=== PATIENT | female | born 1935 | race African-American/Black ===

== ENCOUNTER → 2016-10-14 | Day surgery (SDC) | payer OTHER ==
--- NOTE | 2016-10-17 15:56 | PATH ---
Cytology Non-Gynecological Report Patient Name: HUMBERTO HASSAN [facility]. Rec. #: [id number] /Age/Gender: 1935 (Age: 81) / F Account: [id number] Location: RADIOLOGY Taken: 10/14/2016 Received: 10/14/2016 Reported: 10/17/2016 Physicians: Santhosh Sharma M.D. Specimen(s) Received THYROID FNA Clinical History Right 2.31 x 1.69 x1.46 cm Final Diagnosis THYROID, RIGHT, FINE NEEDLE ASPIRATION: SATISFACTORY FOR EVALUATION BETHESDA CATEGORY II: BENIGN (NO MALIGNANT CELLS IDENTIFIED) CYTOLOGIC FINDINGS ARE CONSISTENT WITH A BENIGN FOLLICULAR NODULE (ADENOMATOID NODULE) BENIGN FOLLICULAR CELLS AND COLLOID PRESENT. Comment: Recommend correlation with clinical findings and follow up as clinically indicated. Electronically Signed Gigi Bentley M.D. Gross Description Received are eight direct smears, four of which are air-dried and Diff-Quik stained, and four of which are alcohol fixed and Pap stained. Also received is 20 ml of bloody formalin from which one cellblock is prepared.
== END | disposition home or self-care (01) ==
LOC: JRADIR 09:39
PROVIDERS: ATTEND Internal Medicine Endocrinology, Diabetes & Metabolism
PROC: 0G9H3ZX Drainage of Right Thyroid Gland Lobe, Percutaneous Approach, Diagnostic (ICD-10-PCS; principal; 2016-10-14)
PROC: BG44ZZZ Ultrasonography of Thyroid Gland (ICD-10-PCS; 2016-10-14)
DX: E04.1 Nontoxic single thyroid nodule (principal)
CPT/HCPCS: 76942; 88173; 88305-TC

== ENCOUNTER → 2016-10-21 | Day surgery (SDC) | payer OTHER ==
--- NOTE | 2016-10-25 14:17 | PATH ---
Cytology Non-Gynecological Report Patient Name: HUMBERTO HASSAN [facility]. Rec. #: [id number] /Age/Gender: 1935 (Age: 81) / F Account: [id number] Location: RADIOLOGY Taken: 10/21/2016 Received: 10/21/2016 Reported: 10/25/2016 Physicians: Santhosh Sharma M.D. Specimen(s) Received LEFT THYROID FNA Clinical History Left thyroid nodule, 2.6 x 2.06 x 2.25 cm Final Diagnosis THYROID GLAND, LEFT LOBE, US GUIDED FINE NEEDLE ASPIRATION BIOPSY: SATISFACTORY FOR EVALUATION. NO MALIGNANT CELLS IDENTIFIED. CONSISTENT WITH NODULAR GOITER WITH CYSTIC CHANGE (BENIGN FOLLICULAR NODULE, BETHESDA CATEGORY II, BENIGN), SEE COMMENT. Comment: The smear and the cell block focal abscess of lung appearing follicular epithelial cells arranged in mixed macro- and microfollicles. Many cells show Hurthle cell (oncocytic) change. Macrophages are present indicative of cystic change. Colloid is present. Electronically Signed Sen Sanabria M.D. Gross Description Received are four air dried smears, four smears in 95% alcohol, and 20 cc of bloody fluid in formalin. Four diff-quik stained slides, four Pap stained slides and one cell block are made.
== END | disposition home or self-care (01) ==
LOC: JRADIR 09:38
PROVIDERS: ATTEND Internal Medicine Endocrinology, Diabetes & Metabolism
PROC: 0G9G3ZX Drainage of Left Thyroid Gland Lobe, Percutaneous Approach, Diagnostic (ICD-10-PCS; principal; 2016-10-21)
PROC: BG44ZZZ Ultrasonography of Thyroid Gland (ICD-10-PCS; 2016-10-21)
DX: E04.1 Nontoxic single thyroid nodule (principal)
CPT/HCPCS: 76942; 88173; 88305-TC

== ENCOUNTER → 2018-12-25 | Day surgery (SDC) | payer OTHER ==
--- NOTE | 2018-12-28 18:14 | PATH ---
Cytology Non-Gynecological Report Patient Name: HUMBERTO HASSAN [facility]. Rec. #: [id number] /Age/Gender: 1935 (Age: 83) / F Account: [id number] Location: RADIOLOGY ULTRA Taken: 12/25/2018 Received: 12/25/2018 Reported: 12/28/2018 Physicians: Vania Salmon M.D. Specimen(s) Received RIGHT THYROID FNA Clinical History Right thyroid nodule, 2.56 x 1.68 x 1.38 cm Final Diagnosis THYROID, RIGHT, FINE NEEDLE ASPIRATION: SATISFACTORY FOR EVALUATION. BETHESDA CLASS II: BENIGN. CYTOLOGIC FINDINGS ARE CONSISTENT WITH A BENIGN FOLLICULAR NODULE. SMALL FOLLICULAR CELLS DISPERSED AGGREGATES, SHEETS, MACRO AND MICRO-FOLLICLES IN A BACKGROUND OF ABUNDANT COLLOID PRESENT. Electronically Signed Meme Ge M.D. Gross Description Received are 7 direct smears, four of which are air-dried and Diff-Quik stained, and 3 of which are alcohol fixed and Pap stained. One cytospin prepared and Pap stained. Also received is 20 ml of bloody formalin from which one cellblock is prepared.
== END | disposition home or self-care (01) ==
LOC: JRADIR 09:01
PROVIDERS: ATTEND Internal Medicine
PROC: 0G9K3ZX Drainage of Thyroid Gland, Percutaneous Approach, Diagnostic (ICD-10-PCS; principal; 2018-12-25)
DX: E04.1 Nontoxic single thyroid nodule (principal)
CPT/HCPCS: 10005; 76942; 88173; 88305-TC

== ENCOUNTER → 2018-12-31 | Day surgery (SDC) | payer OTHER ==
--- NOTE | 2019-01-02 10:22 | PATH ---
Cytology Non-Gynecological Report Patient Name: HUMBERTO PILLAI [facility]. Rec. #: [id number] /Age/Gender: 1935 (Age: 83) / F Account: [id number] Location: RADIOLOGY Taken: 12/31/2018 Received: 12/31/2018 Reported: 01/02/2019 Physicians: Santhosh Sharma M.D. Specimen(s) Received LEFT THYROID FNA Clinical History Left thyroid lobe, 2.42 x 2.04 x 1.94 cm Final Diagnosis THYROID, LEFT, FINE NEEDLE ASPIRATION: SATISFACTORY FOR EVALUATION. BETHESDA CLASS II: BENIGN. CYTOLOGIC FINDINGS ARE CONSISTENT WITH A BENIGN FOLLICULAR NODULE WITH POST-HEMORRHAGIC CHANGE. FOLLICULAR CELLS WITH IN A BACKGROUND OF SOME THIN COLLOID AND HEMOSIDERIN-LADEN MACROPHAGES. Electronically Signed Meme Ge M.D. Gross Description Received are eight direct smears, four of which are air-dried and Diff-Quik stained, and four of which are alcohol fixed and Pap stained. Also received is 20 ml of bloody formalin from which one cellblock is prepared.
== END | disposition home or self-care (01) ==
LOC: JRADIR 09:04
PROVIDERS: ATTEND Internal Medicine
PROC: 0G9G3ZX Drainage of Left Thyroid Gland Lobe, Percutaneous Approach, Diagnostic (ICD-10-PCS; principal; 2018-12-31)
DX: E04.1 Nontoxic single thyroid nodule (principal)
CPT/HCPCS: 76942; 88173; 88305-TC

== ENCOUNTER 2019-09-26 19:32 | Inpatient (IN) | payer OTHER ==
[2019-09-26] MEDS ORDERED: ACETAMINOPHEN 1000 MG/100 ML VIAL (NON FORMULARY) IVPB ONE (20:24)
--- NOTE | 2019-09-26 20:25 | PDOC ---
History of Present Illness - General Chief Complaint: Edema Stated Complaint: EXTREMITY SWELLING Time Seen by Provider: 09/26/19 19:48 - History of Present Illness Initial Comments: History limited 2/2 patient clinical condition, provided by patient and granddaughter. 84 y/o female with HTN, CAD, CHF, CKD stage 3, afib/flutter, arterial insufficiency presenting today with right upper extremity swelling and pain. Per granddaughter, this started on Monday. Pt reports pain worse with movement. States that the pain is worse in the right axilla. No recent falls or trauma. No chest pain/shortness of breath. No abd pain. No back pain. No dysuria/diarrhea. No leg swelling. Per granddaughter pt does not appear to be altered from her baseline. A&Ox1. Denies fever/chills. Pt has a hx of stent in the RLE and DVT in LLE. Meds: plavix, eliquis Past History - Medical History Allergies/Adverse Reactions: Allergies Allergy/AdvReac Type Severity Reaction Status Date / Time No Known Allergies Allergy Verified 09/26/19 22:50 Home Medications: Ambulatory Orders Diltiazem Cd [Cardizem Cd -] 240 mg PO DAILY 08/22/19 Hydrochlorothiazide [Hctz -] 25 mg PO DAILY 08/22/19 Losartan Potassium [Cozaar] 100 mg PO DAILY 08/22/19 Metoprolol Succinate [Toprol XL -] 75 mg PO DAILY 08/22/19 Apixaban [Eliquis -] 5 mg PO BID #60 tablet 08/28/19 Atorvastatin Ca [Lipitor] 80 mg PO HS #30 tablet 08/28/19 Clopidogrel Bisulfate [Plavix -] 75 mg PO DAILY #30 tablet 08/28/19 Anemia: Yes Cardiac Disorders: Yes (a.flutter) COPD: No CHF: Yes HTN: Yes Thyroid Disease: Yes (nodule) - Psycho-Social/Smoking History Smoking History: Never smoked Have you smoked in the past 12 months: No - Substance Abuse Hx (Audit-C & DAST Scrn) How often the patient has a drink containing alcohol: Never Score: In Men: 4 or > Positive; In Women: 3 or > Positive: 0 Screen Result (Pos requires Nsg. Audit-10AR): Negative In the last yr the pt used illegal drug/Rx for NonMed reason: No Score: Yes response is considered Positive: 0 Screen Result (Positive result requires Nsg. DAST-10): Negative Review of Systems - Review of Systems Comments:: GENERAL/CONSTITUTIONAL: No fever or chills. No weakness._ HEAD, EYES, EARS, NOSE AND THROAT: No change in vision. No change in hearing. No sore throat._ CARDIOVASCULAR: No chest pain or shortness of breath_ RESPIRATORY: Denies cough, hemoptysis_ GASTROINTESTINAL: No nausea, vomiting, diarrhea or constipation._ GENITOURINARY: No dysuria, frequency, or change in urination._ MUSCULOSKELETAL: Reports right upper extremity pain. No neck or back pain._ SKIN: No rash_ NEUROLOGIC: No headache, vertigo, loss of consciousness, or change in strength/sensation._ ENDOCRINE: No increased thirst. No abnormal weight change_ HEMATOLOGIC/LYMPHATIC: Hx of DVT LLE. ALLERGIC/IMMUNOLOGIC: No hives or skin allergy._ *Physical Exam - Vital Signs Last Vital Signs Temp Pulse Resp BP Pulse Ox 98.6 F 96 H 18 151/60 99 09/26/19 20:13 09/26/19 20:13 09/26/19 20:13 09/26/19 20:13 09/26/19 20:13 - Physical Exam GENERAL: Awake, alert, and oriented to person, in no acute distress_ HEAD: No signs of trauma, normocephalic, atraumatic _ EYES: PERRLA, EOMI, sclera anicteric, conjunctiva clear_ ENT: Hearing grossly normal, nares patent, oropharynx clear without exudates. No uvular deviation. Moist mucosa_ NECK: Normal ROM, supple, no lymphadenopathy, JVD, or masses. No c-spine TTP. LUNGS: No distress, speaks in full sentences, clear to auscultation bilaterally _ HEART: Normal rate, irregular rhythm, normal S1 and S2, no murmurs appreciated, peripheral pulses normal and equal bilaterally._ ABDOMEN: Soft, nontender, normoactive bowel sounds. No guarding, no rebound. No masses_ EXTREMITIES: Right upper extremity swelling from hand to shoulder. Pain exacerbated by movement. No focal TTP. Full ROM. Pulses 2+ bilaterally. Coat Operator Insulator strength equal and bilateral. No clubbing or cyanosis_ NEUROLOGICAL: Cranial nerves II through XII grossly intact. Normal speech, ambulates with cane, no focal sensorimotor deficits. No facial asymmetry. No gross loss of sensation. SKIN: Very warm to touch, Dry, normal turgor, no rashes or lesions noted_ ED Treatment Course - LABORATORY CBC & Chemistry Diagram: 09/27/19 06:23 09/27/19 06:23 - RADIOLOGY Radiology Studies Ordered: Category Date Time Status CHEST X-RAY PORTABLE* [RAD] Stat Radiology 09/26/19 20:22 Ordered DUPLEX VASCUL US-1 ARM [US] Stat Ultrasound 09/26/19 20:22 Ordered Medical Decision Making - Medical Decision Making 09/26/19 20:34 84F hx of RLE stent, LLE DVT presenting today with RUE pain and swelling that started on Monday. No shortness of breath. Pain worse with movement. DDX includes RUE deep vs superficial vein thrombosis vs cellulitis. -cbc, cmp -ekg, trop, cxr -US duplex RUE -XR right shoulder 09/26/19 21:50 EKG shows 58 bpm, atrial flutter, no ST elevation, QTc 426. 09/26/19 22:35 Rectal temp 101.4. 09/26/19 22:44 US duplex JON shows no deep or superficial vein thrombosis. 09/26/19 22:52 CXR shows possible beginnings of PNA. Started on vanc, rocephin, azithro. Shoulder XR shows no acute fracture or dislocation. Labs reviewed. Laboratory Last Values WBC 10.2 K/mm3 (4.0-10.0) H 09/26/19 20:50 RBC 3.22 M/mm3 (3.60-5.2) L 09/26/19 20:50 Hgb 9.6 GM/dL (10.7-15.3) L 09/26/19 20:50 Hct 29.0 % (32.4-45.2) L 09/26/19 20:50 MCV 90.3 fl (80-96) 09/26/19 20:50 MCH 29.7 pg (25.7-33.7) 09/26/19 20:50 MCHC 32.9 g/dl (32.0-36.0) 09/26/19 20:50 RDW 13.3 % (11.6-15.6) 09/26/19 20:50 Plt Count 267 K/MM3 (134-434) 09/26/19 20:50 MPV 7.7 fl (7.5-11.1) 09/26/19 20:50 Absolute Neuts (auto) 8.5 K/mm3 (1.5-8.0) H 09/26/19 20:50 Neutrophils % 83.2 % (42.8-82.8) H D 09/26/19 20:50 Lymphocytes % 8.6 % (8-40) D 09/26/19 20:50 Monocytes % 7.4 % (3.8-10.2) 09/26/19 20:50 Eosinophils % 0.2 % (0-4.5) D 09/26/19 20:50 Basophils % 0.6 % (0-2.0) 09/26/19 20:50 Nucleated RBC % 0 % (0-0) 09/26/19 20:50 PT with INR 29.80 SEC (9.7-13.0) H 09/26/19 20:50 INR 2.50 (0.83-1.09) H 09/26/19 20:50 PTT (Actin FS) 34.0 SECONDS (25.2-36.5) 09/26/19 20:50 Sodium 138 mmol/L (136-145) 09/26/19 20:50 Potassium 4.0 mmol/L (3.5-5.1) 09/26/19 20:50 Chloride 102 mmol/L (98-107) 09/26/19 20:50 Carbon Dioxide 30 mmol/L (21-32) 09/26/19 20:50 Anion Gap 6 MMOL/L (8-16) L 09/26/19 20:50 BUN 21.4 mg/dL (7-18) H 09/26/19 20:50 Creatinine 1.4 mg/dL (0.55-1.3) H 09/26/19 20:50 Est GFR (CKD-EPI)AfAm 39.33 09/26/19 20:50 Est GFR (CKD-EPI)NonAf 33.94 09/26/19 20:50 Random Glucose 126 mg/dL (74-106) H 09/26/19 20:50 Uric Acid 6.9 mg/dL (2.6-7.2) 07/02/20 22:00 Calcium 8.3 mg/dL (8.5-10.1) L 09/26/19 20:50 Total Bilirubin 0.7 mg/dL (0.2-1) 09/26/19 20:50 AST 13 U/L (15-37) L 09/26/19 20:50 ALT 11 U/L (13-61) L 09/26/19 20:50 Alkaline Phosphatase 71 U/L (45-117) 09/26/19 20:50 Creatine Kinase 35 U/L (26-192) 09/26/19 20:50 Troponin I < 0.02 ng/ml (0.00-0.05) 09/26/19 20:50 Total Protein 6.7 g/dl (6.4-8.2) 09/26/19 20:50 Albumin 2.6 g/dl (3.4-5.0) L 09/26/19 20:50 09/27/19 00:22 D/w Dr. Jarrett who accepts the patient for admission. Discharge - Discharge Information Problems reviewed: Yes Clinical Impression/Diagnosis: Pneumonia, Right arm pain, Cellulitis Condition: Fair - Admission Yes - Follow up/Referral - Patient Discharge Instructions - Post Discharge Activity
[2019-09-26] MEDS ORDERED: ACETAMINOPHEN INJECTION 100 ML IVPB ONE (21:15)
[2019-09-26 21:20] LABS: BASO % 0.6 % (0-2.0); EOS % 0.2 % (0-4.5); HEMOGLOBIN 9.6 GM/dL (10.7-15.3); LYMPH % 8.6 % (8-40); MCH 29.7 pg (25.7-33.7); MCHC 32.9 g/dl (32.0-36.0); MEAN CELL VOLUME 90.3 fl (80-96); MEAN PLT VOLUME 7.7 fl (7.5-11.1); MONO % 7.4 % (3.8-10.2); NEUT % 83.2 % (42.8-82.8); PLATELET COUNT 267 K/MM3 (134-434); RBC 3.22 M/mm3 (3.60-5.2); RDW 13.3 % (11.6-15.6); WHITE BLOOD COUNT 10.2 K/mm3 (4.0-10.0)
[2019-09-26 21:28] LABS: INR 2.5 (0.83-1.09); PROTHROMBIN TIME (PATIENT) 29.8 SEC (9.7-13.0)
[2019-09-26 21:53] LABS: ALBUMIN 2.6 g/dl (3.4-5.0); ALK PHOS 71 U/L (45-117); ANION GAP 6 MMOL/L (8-16); BILIRUBIN,TOTAL 0.7 mg/dL (0.2-1); BLOOD UREA NITROGEN 21.4 mg/dL (7-18); CALCIUM 8.3 mg/dL (8.5-10.1); CHLORIDE 102 mmol/L (98-107); CO2 30 mmol/L (21-32); CREATININE 1.4 mg/dL (0.55-1.3); GLUCOSE,RANDOM 126 mg/dL (74-106); SGOT/AST 13 U/L (15-37); SGPT/ALT 11 U/L (13-61); SODIUM 138 mmol/L (136-145); TOT PROT 6.7 g/dl (6.4-8.2)
[2019-09-26] MEDS ORDERED: LACTATED RINGERS SOLUTION 1000 ML INFUS.BAG IV ONE (22:05)
[2019-09-26] MEDS ORDERED: morphine CARPU-JECT 2 MG/1 ML DISP.SYRIN IVPUSH ONE (22:06)
[2019-09-26] MEDS ORDERED: KETOROLAC TROMETHAMINE 15 MG/ML VIAL IVPUSH ONE (22:11)
--- NOTE | 2019-09-26 22:11 | PDOC ---
Documentation entered by Zelda Darby SCRIBE, acting as scribe for Cherry Barrera DO. Cherry Barrera DO: This documentation has been prepared by the Wilner soria Sydney, SCRIBE, under my direction and personally reviewed by me in its entirety. I confirm that the documentation accurately reflects all work, treatment, procedures, and medical decision making performed by me. Attending Attestation - Resident Resident Name: Lalit Johnson - ED Attending Attestation I have performed the following: I have examined & evaluated the patient, The case was reviewed & discussed with the resident, I agree w/resident's findings & plan, Exceptions are as noted - HPI HPI: 09/26/19 21:47 The patient is an 84 year old female with past medical history significant for HTN, CAD, CHF, Afib/flutter, arterial insufficiency and thyroid nodule, on Eliquis, on Plavix who presents to the emergency department with progressively worsening right upper extremity swelling. As per patient, her swelling began this past Monday and reports an associated dull pain in her right arm. Patients daughter denies any recent falls or fevers. PCP: Dr. Power - Physicial Exam PE: 09/26/19 22:11 Constitutional: Awake, alert, oriented. No acute distress. Head: Normocephalic. Atraumatic Eyes: PERRL. EOMI. Conjunctivae are not pale. ENT: Mucous membranes are moist and intact. Posterior pharynx without exudates or erythema. Uvula midline. Neck: Supple. Full ROM. No lymphadenopathy. Cardiovascular: Regular rate. Regular rhythm. S1, S2 regular. Pulmonary/Chest: No evidence of respiratory distress. Clear to auscultation bilaterally No wheezing, rales or rhonchi. Abdominal: Soft and non-distended. There is no tenderness. No rebound, guarding or rigidity. Back: No CVA tenderness. Musculoskeletal: + limited abduction R arm secondary to pain. No C, T, or L spine tenderness. No paraspinal tenderness. No edema. No cyanosis. No clubbing. No calf tenderness. Skin: + L wrist and arm are hot, swollen, and tender; R hand, wrist, forearm, and arm are swollen, hot, and tender; hot to touch, tender at R wrist, arm, axilla. Neurological: Alert and oriented to person, place, and time. Cranial nerves II-XII are grossly intact. Normal speech. Strength is grossly symmetric. No sensory deficits. Psychiatric: Good eye contact. Normal interaction, affect and behavior. - Medical Decision Making 09/26/19 22:09 a/p: 84yo female with R arm pain x 1 day -had L wrist pain yesterday and still has the pain today, but now with R arm pain -denies trauma -R hand swelling and warmth and wrist ttp -able to range the arm -no c/t/l spine ttp -labs sent show an elevated wbc, trop neg, mild cr increase -uric acid added -rectal temp added -will medicate for pain, will monitor and reassess 09/26/19 23:04 dvt neg shoulder xray shows arthritis warmth and swelling to b/l wrists concern for cellulitis, pt with arm pain and swelling also febrile will start abx poss pna on cxr cultures ordered will start abx will admit for pna/cellulitis Heart Score/ECG Review - ECG Intrepretation Comment:: 09/26/19 22:08 a/p: aflutter with pvc at 58, nl axis, no acute st changes, t wave inversions with flattening in the lateral leads Discharge - Discharge Information Problems reviewed: Yes Clinical Impression/Diagnosis: Pneumonia, Right arm pain, Cellulitis Condition: Fair - Admission Yes - Follow up/Referral - Patient Discharge Instructions - Post Discharge Activity
[2019-09-26] MEDS ORDERED: MORPHINE SULFATE 2 MG/ML VIAL ONE (22:30)
[2019-09-26] MEDS ORDERED: KETOROLAC TROMETHAMINE 15 MG/ML VIAL ONE (22:30)
[2019-09-26] MEDS ORDERED: AZITHROMYCIN IVPB 500 MG in DEXTROSE 5%-WATER - 250 ML IVPB ONE (23:07)
[2019-09-26] MEDS ORDERED: VANCOMYCIN 1 GM in D5W (PRE-DOCKED) 1,000 MG/250 ML IVPB ONE (23:07)
[2019-09-26] MEDS ORDERED: CEFTRIAXONE 1 GM in DEXTROSE 5%-WATER - 100 ML IVPB ONE (23:07)
[2019-09-27] MEDS ORDERED: CEFTRIAXONE 1 GM/50 ML BAG ONE (00:03)
--- NOTE | 2019-09-27 00:22 | PN ---
Teaching Attending Note Name of Resident: Libertad Jarrett ATTENDING PHYSICIAN STATEMENT I saw and evaluated the patient. I reviewed the resident's note and discussed the case with the resident. I agree with the resident's findings and plan as documented. SUBJECTIVE: Patient is an 84 year old woman with a PMH of HTN, CAD, CHF, CKD, Afib/flutter (On Plavix and Eliquis), Arterial insufficiency, RLE stent, DVT in LLE and Thyroid nodule presenting with right upper extremity swelling and pain. Per granddaughter, this started on Monday. Patient reports pain worse with movement. States that the pain is worse in the right axilla. No recent falls, trauma, chest pain, fever, chills, shortness of breath, abdominal pain, back pain, dysuria, diarrhea or leg swelling. Per granddaughter patient does not appear to be altered from her baseline - alert and oriented to person. Was recently hospitalized for LLE pain, arterial occlusion and elevated troponin and discharged on 08/28/2019. Denies alcohol, tobacco or illicit drug use. No sick contacts or recent travels. Tested negative for COVID-19 on 08/23/19 and 08/25/19. Family history is unremarkable. OBJECTIVE: Alert Vital Signs Period Temp Pulse Resp BP Sys/Arnold Pulse Ox Last 24 Hr 98.6 F-101.4 F 63-96 18-21 140-151/45-60 99-99 HEENT: No Jaundice, eye redness or discharge, PERRLA, EOMI. Normocephalic, atraumatic. External ears are normal and hearing is grossly intact. No nasal discharge. Neck: Supple, nontender. No palpable adenopathy or thyromegaly. No JVD Chest: Good effort. Clear to auscultation and percussion. Heart: Regular. No S3, rub or murmur Abdomen: Not distended, soft, nontender and no HSM. No rebound or guarding. Normal bowel sounds. Ext: Peripheral pulses intact. Limited ROM of right shoulder. Right forearm erythema, edema and tenderness. No leg edema. Skin: Warm and dry. No petechiae, rash or ecchymosis. Neuro: Alert. Oriented to person. Poorly communicative. CN 2-12 grossly intact. Sensation grossly intact in all four extremities and DTR are symmetric. Psych: Appropriate mood and affect. Good insight. Home Medications Medication Instructions Recorded Diltiazem Cd [Cardizem Cd -] 240 mg PO DAILY 08/22/19 Hydrochlorothiazide [Hctz -] 25 mg PO DAILY 08/22/19 Losartan Potassium [Cozaar] 100 mg PO DAILY 08/22/19 Metoprolol Succinate [Toprol XL -] 75 mg PO DAILY 08/22/19 Apixaban [Eliquis -] 5 mg PO BID #60 tablet 08/28/19 Atorvastatin Ca [Lipitor] 80 mg PO HS #30 tablet 08/28/19 Clopidogrel Bisulfate [Plavix -] 75 mg PO DAILY #30 tablet 08/28/19 Abnormal Lab Results 09/26/19 09/26/19 09/26/19 20:50 20:50 20:50 WBC 10.2 H RBC 3.22 L Hgb 9.6 L Hct 29.0 L Absolute Neuts (auto) 8.5 H Neutrophils % 83.2 H D PT with INR 29.80 H INR 2.50 H Anion Gap 6 L BUN 21.4 H Creatinine 1.4 H Random Glucose 126 H Calcium 8.3 L AST 13 L ALT 11 L Albumin 2.6 L Current Medications Generic Name Dose Route Start Last Admin Trade Name Freq PRN Reason Stop Dose Admin Acetaminophen 650 mg 09/27/19 03:47 Tylenol - PO Q4H PRN PAIN LEVEL 6-10 Apixaban 5 mg 09/27/19 10:00 Eliquis - PO BID [facility] Atorvastatin Calcium 80 mg 09/27/19 22:00 Lipitor - PO HS [facility] Clopidogrel Bisulfate 75 mg 09/27/19 10:00 Plavix - PO DAILY [facility] Diltiazem HCl 240 mg 09/27/19 10:00 Cardizem Cd - PO DAILY [facility] Hydrochlorothiazide 25 mg 09/27/19 10:00 Hctz - PO DAILY [facility] Losartan Potassium 100 mg 09/27/19 10:00 Cozaar - PO DAILY [facility] Metoprolol Succinate 75 mg 09/27/19 10:00 Toprol Xl - PO DAILY [facility] Vancomycin HCl 1,000 mg 09/27/19 11:00 Vancomycin (Pre-Docked) IVPB BID [facility] Protocol ASSESSMENT AND PLAN: 1. RUE Cellulitis - No obvious risk factor, though she reports having multiple venepuncture on the right arm during her recent hospital stay. Duplex scan of RUE didnot show any vascular obstruction. Right shoulder xray showed degenerative changes but no fracture or dislocation. CXR shows cardiomegaly, RLL atelectasis and blunted left costophrenic angle - unchanged compared to prior CXR. Will get CT scan of right fore arm, uric acid level, use tylenol for pain control, treat with IV Vancomycin and consult ID. Viral testing for COVID-19 ordered and patient placed on airborne, droplet and contact isolation. EKG shows Atrial flutter at 58/minute and QTc 426 with nonspecific T wave changes. Initial troponin is negative. Refer to Endocrine for workup of thyroid nodule. Will continue comprehensive care for all of patients comorbid conditions including Eliquis for Afib. 2. Hypoalbuminemia - Possibly due to combined effects of proteinuria, malnutrition and inflammation associated with comorbid conditions. Will ensure adequate dietary protein intake and also consult embossing clerk. 3. CKD Cause unclear. Will monitor urine output and consult Nephrology. Avoid nephrotoxic agents such as NSAIDS, aminoglycosides, contrast dyes and certain Alternative medicine products. 4. Anemia - Likely partly due to CKD. Will do basic anemia work up including serial stool guaiacs, reticulocyte count and iron studies. Would benefit from Procrit therapy once iron replete. 5. Hypertension Will restart suitable outpatient antihypertensive drugs when clinically appropriate. Subsequently, will revise regimen to ensure ro [id number] excellent BP control. Patient counseled on the injurious effects of uncontrolled hypertension. Nonpharmacologic measures to control hypertension like weight loss, salt restriction and exercise stressed. Importance of adherence to treatment regimen and attainment of normotension emphasized. 6. DVT prophylaxis - On Eliquis for Afib/flutter. 7. Advance directives - Full code
[2019-09-27] MEDS ORDERED: AZITHROMYCIN IVPB 500 MG/250 ML BAG IVPB ONE (00:42)
[2019-09-27] MEDS ORDERED: VANCOMYCIN 1 GRAM (PRE-DOCKED) 1,000 MG/250 ML BAG IVPB ONE (01:42)
[2019-09-27 05:08] VITALS: BMI 24.5
[2019-09-27] MEDS ORDERED: PNEUMOC 13-VAL CONJ-DIP CRM/PF 0.5 ML DISP.SYRIN IM ONE (05:08)
[2019-09-27 07:53] LABS: BASO % 0.5 % (0-2.0); EOS % 0.1 % (0-4.5); HEMATOCRIT 27.6 % (32.4-45.2); HEMOGLOBIN 8.9 GM/dL (10.7-15.3); LYMPH % 18.1 % (8-40); MCH 28.9 pg (25.7-33.7); MCHC 32.3 g/dl (32.0-36.0); MEAN CELL VOLUME 89.5 fl (80-96); MEAN PLT VOLUME 8.3 fl (7.5-11.1); MONO % 14.1 % (3.8-10.2); NEUT % 67.2 % (42.8-82.8); PLATELET COUNT 263 K/MM3 (134-434); RBC 3.08 M/mm3 (3.60-5.2); RDW 13.3 % (11.6-15.6); WHITE BLOOD COUNT 10.8 K/mm3 (4.0-10.0)
[2019-09-27 08:11] LABS: ALBUMIN 2.3 g/dl (3.4-5.0); BILIRUBIN,TOTAL 0.7 mg/dL (0.2-1); BLOOD UREA NITROGEN 23.6 mg/dL (7-18); CALCIUM 8.2 mg/dL (8.5-10.1); CREATININE 1.5 mg/dL (0.55-1.3); PHOSPHOROUS 3.5 mg/dL (2.5-4.9); POTASSIUM 3.9 mmol/L (3.5-5.1); TOT PROT 6.1 g/dl (6.4-8.2)
--- NOTE | 2019-09-27 09:19 | HP ---
CHIEF COMPLAINT: Right arm swelling PCP: Dr. Power HISTORY OF PRESENT ILLNESS: 84 y F with a PMH of HTN, CAD, CHF, CKDs3, Afib/Flutter(Plavix and eliquis), S/p Stent in RLE and Hx of DVT in LLE, presented with Right arm swelling and Pain. The Hx was obtained via the patient's granddaughter. Per granddaughter, Right arm swelling and pain initiated 4 days ago. She reports no recent falls, trauma of the RUE. She was recently admitted on 08/22/19 for SOB and left 3rd toe pain. Echo findings on the previous report was suspicious for apical thrombus. CTA on previous visit also revealed b/l femoropopliteal stenotic disease and a stent was placed on LLE. Patient was discharged on 08/28/19 with home meds Plavix and eliquis. ER course was notable for: (1) Sepsis secondary to Cellutlitis RUE (2) (3) Recent Travel: Denies PAST MEDICAL HISTORY: HTN, CAD, CHF, CKDs3, Afib/Flutter(Plavix and eliquis), S/p Stent in RLE and Hx of DVT in LLE PAST SURGICAL HISTORY: Social History: Smoking: Denies Alcohol: Denies Drugs: Denies Allergies No Known Allergies Allergy (Verified 09/26/19 22:50) HOME MEDICATIONS: Home Medications Medication Instructions Recorded Diltiazem Cd [Cardizem Cd -] 240 mg PO DAILY 08/22/19 Hydrochlorothiazide [Hctz -] 25 mg PO DAILY 08/22/19 Losartan Potassium [Cozaar] 100 mg PO DAILY 08/22/19 Metoprolol Succinate [Toprol XL -] 75 mg PO DAILY 08/22/19 Apixaban [Eliquis -] 5 mg PO BID #60 tablet 08/28/19 Atorvastatin Ca [Lipitor] 80 mg PO HS #30 tablet 08/28/19 Clopidogrel Bisulfate [Plavix -] 75 mg PO DAILY #30 tablet 08/28/19 REVIEW OF SYSTEMS CONSTITUTIONAL: Absent: fever, chills, diaphoresis, generalized weakness, malaise, loss of appetite, weight change HEENT: Absent: rhinorrhea, nasal congestion, throat pain, difficulty swallowing CARDIOVASCULAR: Absent: chest pain, palpitations, peripheral edema RESPIRATORY: Absent: cough, shortness of breath, dyspnea with exertion, orthopnea GASTROINTESTINAL: Absent: abdominal pain, abdominal distension, nausea, vomiting, diarrhea, constipation GENITOURINARY: Absent: dysuria, frequency, urgency, hesitancy, hematuria, SKIN: Absent: rash, itching PHYSICAL EXAMINATION Vital Signs - 24 hr 09/26/19 09/26/19 09/26/19 20:13 22:10 22:45 Temperature 98.6 F 101.4 F H Pulse Rate 96 H Pulse Rate [ Left Radial] Respiratory 18 18 Rate Blood Pressure 151/60 Blood Pressure [Right Arm] O2 Sat by Pulse 99 99 Oximetry (%) 09/27/19 09/27/19 09/27/19 00:22 05:06 05:10 Temperature 98.8 F 98.5 F 98.5 F Pulse Rate 58 L 58 L Pulse Rate [ 63 Left Radial] Respiratory 21 H 20 20 Rate Blood Pressure 160/57 L 160/57 L Blood Pressure 140/45 L [Right Arm] O2 Sat by Pulse 99 98 Oximetry (%) 09/27/19 06:00 Temperature 99.1 F Pulse Rate 73 Pulse Rate [ Left Radial] Respiratory 20 Rate Blood Pressure 153/73 Blood Pressure [Right Arm] O2 Sat by Pulse Oximetry (%) GENERAL: Awake, alert, and fully oriented, in no acute distress. HEAD: Normal with no signs of trauma. EYES: Pupils equal, round and reactive to light, extraocular movements intact, sclera anicteric, conjunctiva clear. NECK: supple without lymphadenopathy, JVD, or masses. LUNGS: Breath sounds equal, clear to auscultation bilaterally. No wheezes, and no crackles. No accessory muscle use. HEART: Regular rate and rhythm, normal S1 and S2 No ,murmurs No rub or gallop. ABDOMEN: Soft, nontender, not distended, normoactive bowel sounds, no guarding, no rebound, no masses. MUSCULOSKELETAL: Normal range of motion at all joints. No bony deformities or tenderness. No CVA tenderness. UPPER EXTREMITIES: diminished pulses, R Forearm was warm to touch, erythematous with no clear margins and edematous. LOWER EXTREMITIES: diminished pulses, No calf tenderness. No peripheral edema. NEUROLOGICAL: Cranial nerves II-XII intact. Normal speech. Normal gait. PSYCHIATRIC: Cooperative. Good eye contact. Appropriate mood and affect. Laboratory Results - last 24 hr 07/05/1609/26/19 09/26/19 20:50 20:50 20:50 WBC 10.2 H RBC 3.22 L Hgb 9.6 L Hct 29.0 L MCV 90.3 MCH 29.7 MCHC 32.9 RDW 13.3 Plt Count 267 MPV 7.7 Absolute Neuts (auto) 8.5 H Neutrophils % 83.2 H D Lymphocytes % 8.6 D Monocytes % 7.4 Eosinophils % 0.2 D Basophils % 0.6 Nucleated RBC % 0 PT with INR 29.80 H INR 2.50 H PTT (Actin FS) 34.0 Sodium 138 Potassium 4.0 Chloride 102 Carbon Dioxide 30 Anion Gap 6 L BUN 21.4 H Creatinine 1.4 H Est GFR (CKD-EPI)AfAm 39.33 Est GFR (CKD-EPI)NonAf 33.94 Random Glucose 126 H Uric Acid Calcium 8.3 L Phosphorus Magnesium Iron TIBC Iron Saturation Unsaturated IBC Ferritin Total Bilirubin 0.7 AST 13 L ALT 11 L Alkaline Phosphatase 71 Creatine Kinase 35 Troponin I < 0.02 Total Protein 6.7 Albumin 2.6 L 09/26/19 09/27/19 09/27/19 22:00 06:23 06:23 WBC 10.8 H RBC 3.08 L Hgb 8.9 L Hct 27.6 L MCV 89.5 MCH 28.9 MCHC 32.3 RDW 13.3 Plt Count 263 MPV 8.3 Absolute Neuts (auto) 7.2 Neutrophils % 67.2 Lymphocytes % 18.1 D Monocytes % 14.1 H D Eosinophils % 0.1 Basophils % 0.5 Nucleated RBC % 0 PT with INR INR PTT (Actin FS) Sodium Potassium Chloride Carbon Dioxide Anion Gap BUN Creatinine Est GFR (CKD-EPI)AfAm Est GFR (CKD-EPI)NonAf Random Glucose Uric Acid 6.9 Calcium Phosphorus Magnesium Iron 11 L TIBC 171 L Iron Saturation 6 L Unsaturated IBC 160 L Ferritin 252.7 Total Bilirubin AST ALT Alkaline Phosphatase Creatine Kinase Troponin I Total Protein Albumin 09/27/19 06:23 WBC RBC Hgb Hct MCV MCH MCHC RDW Plt Count MPV Absolute Neuts (auto) Neutrophils % Lymphocytes % Monocytes % Eosinophils % Basophils % Nucleated RBC % PT with INR INR PTT (Actin FS) Sodium 137 Potassium 3.9 Chloride 100 Carbon Dioxide 27 Anion Gap 11 BUN 23.6 H Creatinine 1.5 H Est GFR (CKD-EPI)AfAm 36.18 Est GFR (CKD-EPI)NonAf 31.22 Random Glucose 100 Uric Acid Calcium 8.2 L Phosphorus 3.5 Magnesium 2.0 Iron 12 L TIBC 158 L Iron Saturation 7 L Unsaturated IBC 146 L Ferritin 258.9 Total Bilirubin 0.7 AST 12 L ALT 8 L Alkaline Phosphatase 63 Creatine Kinase Troponin I Total Protein 6.1 L Albumin 2.3 L ASSESSMENT/PLAN: 84 y F with a PMH of HTN, CAD, CHF, CKDs3, Afib/Flutter(Plavix and eliquis), S/p Stent in RLE and Hx of DVT in LLE, presented with Right arm swelling and Pain. PE was notable for R Forearm that was warm to touch, erythematous with no clear margins and edematous. U/S of RUE revealed no DVT and Lab values were significant for an levated WBC. She was Admitted for management of RUE cellulitis. #RUE Cellulitis: Assessment: - Patient reported multiple venepuncture during previous visit, but no other obvious risk factors. - RUE U/S did not reveal DVT - Physical exam was significant for R Forearm that was warm to touch, erythematous with no clear margins and edematous Plan: - Ordered CT of Right upper extremity - Continue Vancomycine 1gm - Consulted ID Beth Petersen - Blood cultures are pending - Ordered Uric acid #TONY Assessment: - Bun 21.4/ Crea 1.4 (baseline 1.1) Plan: - monitor Urine output - repeat UA #HTN - Bp is stable at this time - Controlled with Cozaar 100mg, Hctz 25mg, Cardizem Cd 240 mg, Toprol XL 75 mg #Hx of DVT - S/P RLE stent - On Plavix 75mg and Eliquis 5mg #Afib/Flutter - On Plavix 75mg and Eliquis 5mg # Disposition: Admit to Med-Surg IVF-None GI-None DVT- RLE stent, Eliquis, Plavix DIET-Sodium Controlled Consults: -ID Beth Petersen Visit type - Emergency Visit Emergency Visit: Yes ED Registration Date: 09/27/19 Care time: The patient presented to the Emergency Department on the above date and was hospitalized for further evaluation of their emergent condition. - New Patient This patient is new to me today: Yes Date on this admission: 09/28/19 - Critical Care Critical Care patient: No ATTENDING PHYSICIAN STATEMENT I saw and evaluated the patient. I reviewed the resident's note and discussed the case with the resident. I agree with the resident's findings and plan as documented. SUBJECTIVE: OBJECTIVE: ASSESSMENT AND PLAN:
[2019-09-27] MEDS: metoPROLOL SUCCINATE 25 MG TAB.SR.24H (FP) PO SCH (09:44)
[2019-09-27] MEDS: CLOPIDOGREL BISULFATE 75 MG TABLET (FP) PO SCH (09:45)
[2019-09-27] MEDS ORDERED: APIXABAN 5 MG TABLET PO SCH (10:00)
[2019-09-27] MEDS ORDERED: PATIENT'S OWN MEDICATION (NON-FORMULARY) (Losartan Potassium [Cozaar] 100 MG) PO SCH (10:00)
[2019-09-27] MEDS ORDERED: HYDROCHLOROTHIAZIDE 25 MG TABLET (FP) PO SCH (10:00)
[2019-09-27] MEDS ORDERED: LOSARTAN POTASSIUM 50 MG TABLET (FP) PO SCH (10:00)
[2019-09-27] MEDS ORDERED: PIPERACILLIN/TAZOB 3.375 GM 3.375 GM in DEXTROSE 5%-WATER - 50 ML IVPB ONE (10:02)
--- NOTE | 2019-09-27 10:42 | EKG ---
Test Reason : Blood Pressure : / mmHG Vent. Rate : 058 BPM Atrial Rate : 241 BPM P-R Int : 000 ms QRS Dur : 080 ms QT Int : 434 ms P-R-T Axes : 000 007 -12 degrees QTc Int : 426 ms ATRIAL FLUTTER WITH VARIABLE A-V BLOCK WITH PREMATURE VENTRICULAR OR ABERRANTLY CONDUCTED COMPLEXES NONSPECIFIC T WAVE ABNORMALITY ABNORMAL ECG Confirmed by SHIRLEY STRONG MD ([id number]) on 09/27/2019 10:42:21 AM Referred By: Confirmed By:SHIRLEY STRONG MD
[2019-09-27] MEDS ORDERED: PIPERACILLIN/TAZOBACTAM 3.375 GM VIAL IVPB ONE (11:21)
[2019-09-27] MEDS ORDERED: DEXTROSE 5%-WATER - 50 ML IVPB ONE (11:22)
[2019-09-27 12:50] LABS: URIC ACID 6.8 mg/dL (2.6-7.2)
--- NOTE | 2019-09-27 15:20 | PN ---
Physical Exam: SUBJECTIVE: Patient seen and examined OBJECTIVE: Vital Signs Temperature 98.5 F 09/27/19 20:21 Pulse Rate 61 09/27/19 16:30 Respiratory Rate 18 09/27/19 20:21 Blood Pressure 150/60 09/27/19 20:21 O2 Sat by Pulse Oximetry (%) 96 09/27/19 09:00 GENERAL: The patient is awake, alert, in no acute distress. NECK: supple. LUNGS: Breath sounds equal, clear to auscultation bilaterally. HEART: Regular rate and rhythm, S1, S2. ABDOMEN: Soft, nontender, nondistended, normoactive bowel sound. EXTREMITIES: 2+ pulses, warm, well-perfused. RUE swelling from hand to shoulder. Pain exacerbated by movement. No focal TTP. Full ROM. Pulses 2+ bilaterally. Customs Appraiser strength equal and bilateral. No clubbing or cyanosis. SKIN: Warm, dry, normal turgor Laboratory Results - last 24 hr 09/26/19 09/26/19 09/26/19 20:50 20:50 20:50 WBC 10.2 H RBC 3.22 L Hgb 9.6 L Hct 29.0 L MCV 90.3 MCH 29.7 MCHC 32.9 RDW 13.3 Plt Count 267 MPV 7.7 Absolute Neuts (auto) 8.5 H Neutrophils % 83.2 H D Lymphocytes % 8.6 D Monocytes % 7.4 Eosinophils % 0.2 D Basophils % 0.6 Nucleated RBC % 0 PT with INR 29.80 H INR 2.50 H PTT (Actin FS) 34.0 Sodium 138 Potassium 4.0 Chloride 102 Carbon Dioxide 30 Anion Gap 6 L BUN 21.4 H Creatinine 1.4 H Est GFR (CKD-EPI)AfAm 39.33 Est GFR (CKD-EPI)NonAf 33.94 Random Glucose 126 H Lactic Acid Uric Acid Calcium 8.3 L Phosphorus Magnesium Iron TIBC Iron Saturation Unsaturated IBC Ferritin Total Bilirubin 0.7 AST 13 L ALT 11 L Alkaline Phosphatase 71 Creatine Kinase 35 Troponin I < 0.02 Total Protein 6.7 Albumin 2.6 L Rheumatoid Factor 09/26/19 09/27/19 09/27/19 22:00 06:23 06:23 WBC 10.8 H RBC 3.08 L Hgb 8.9 L Hct 27.6 L MCV 89.5 MCH 28.9 MCHC 32.3 RDW 13.3 Plt Count 263 MPV 8.3 Absolute Neuts (auto) 7.2 Neutrophils % 67.2 Lymphocytes % 18.1 D Monocytes % 14.1 H D Eosinophils % 0.1 Basophils % 0.5 Nucleated RBC % 0 PT with INR INR PTT (Actin FS) Sodium Potassium Chloride Carbon Dioxide Anion Gap BUN Creatinine Est GFR (CKD-EPI)AfAm Est GFR (CKD-EPI)NonAf Random Glucose Lactic Acid Uric Acid 6.9 Calcium Phosphorus Magnesium Iron 11 L TIBC 171 L Iron Saturation 6 L Unsaturated IBC 160 L Ferritin 252.7 Total Bilirubin AST ALT Alkaline Phosphatase Creatine Kinase Troponin I Total Protein Albumin Rheumatoid Factor 09/27/19 09/27/19 09/27/19 06:23 11:45 11:45 WBC RBC Hgb Hct MCV MCH MCHC RDW Plt Count MPV Absolute Neuts (auto) Neutrophils % Lymphocytes % Monocytes % Eosinophils % Basophils % Nucleated RBC % PT with INR INR PTT (Actin FS) Sodium 137 Potassium 3.9 Chloride 100 Carbon Dioxide 27 Anion Gap 11 BUN 23.6 H Creatinine 1.5 H Est GFR (CKD-EPI)AfAm 36.18 Est GFR (CKD-EPI)NonAf 31.22 Random Glucose 100 Lactic Acid 1.6 Uric Acid 6.8 Calcium 8.2 L Phosphorus 3.5 Magnesium 2.0 Iron 12 L TIBC 158 L Iron Saturation 7 L Unsaturated IBC 146 L Ferritin 258.9 Total Bilirubin 0.7 AST 12 L ALT 8 L Alkaline Phosphatase 63 Creatine Kinase 34 Troponin I Total Protein 6.1 L Albumin 2.3 L Rheumatoid Factor < 10.0 Active Medications Generic Name Dose Route Start Last Admin Trade Name Freq PRN Reason Stop Dose Admin Acetaminophen 650 mg 09/27/19 03:47 Tylenol - PO Q4H PRN PAIN LEVEL 6-10 Apixaban 2.5 mg 09/27/19 10:36 Eliquis - PO BID JHONATHAN Atorvastatin Calcium 40 mg 09/27/19 22:00 Lipitor - PO HS JHONATHAN Clopidogrel Bisulfate 75 mg 09/27/19 10:00 09/27/19 09:45 Plavix - PO 75 mg DAILY JHONATHAN Administration Diltiazem HCl 240 mg 09/27/19 10:00 09/27/19 09:44 Cardizem Cd - PO 240 mg DAILY JHONATHAN Administration Vancomycin HCl 1,250 mg/ 250 mls @ 125 mls/hr 09/27/19 23:00 Dextrose IVPB 09/28/19 00:59 ONCE ONE Metoprolol Succinate 75 mg 09/27/19 10:00 09/27/19 09:44 Toprol Xl - PO 75 mg DAILY JHONATHAN Administration Vancomycin HCl 1,000 mg 09/27/19 11:00 Vancomycin (Pre-Docked) IVPB BID [facility] Protocol ASSESSMENT/PLAN: Pt is an 84 year old female with pmhx of htn, cad, chf, ckd, a-fib, and dvt who present with right arm pain and swelling. #RUE pain and swelling - may be cellulitis, ?arthritis - RUE U/S did not reveal DVT - CT of Right upper extremity done, no significant findings - Vancomycin 1gm given, will follow vanc trough in setting of TONY - Consulted ID Dr. Alvarez. - Blood cultures are pending - Uric acid, LEANDRA, RF #TONY/CKD - Bun 21.4/ Crea 1.4 (baseline 1.1) - UA, urine electrolytes/osm - Hold Losartan and HCTZ - Renal ultrasound - mild R renal atrophy, mild diffuse bilateral cortical atrophy - monitor vanco levels - avoid nephrotoxic agents - Eliquis dose decreased to 2.5mg in setting of age and TONY - monitor renal function, I&O #HTN -BP stable, will hold Losartan and HCTZ in setting of TONY -continue CArdizem and Toprol 75mg daily #CAD -continue Lipitor, PLavix #Hx of Afib -Continue Eliquis and Toprol 75mg daily #Hx of DVT -s/p RLE stent, On Eliquis #FEN -Not on any standing fluids -Electrolytes wnl, routine bmp monitoring -Sodium controlled diet #Prophylaxis --Eliquis 2.5mg bid #Disposition -full code -Admit to Med-Surg Visit type - Emergency Visit Emergency Visit: Yes ED Registration Date: 09/27/19 Care time: The patient presented to the Emergency Department on the above date and was hospitalized for further evaluation of their emergent condition. - New Patient This patient is new to me today: Yes Date on this admission: 09/27/19 - Critical Care Critical Care patient: No ATTENDING PHYSICIAN STATEMENT I saw and evaluated the patient. I reviewed the resident's note and discussed the case with the resident. I agree with the resident's findings and plan as documented. SUBJECTIVE: OBJECTIVE: ASSESSMENT AND PLAN:
--- NOTE | 2019-09-27 16:42 | CONSULT ---
Consult Consult Specialty:: Nephrology Reason for Consultation:: TONY - History of Present Illness Chief Complaint: right arm pain and swelling History of Present Illness: Pt is an 84 year old female with pmhx of htn, cad, chf, ckd, a-fib, and dvt who present with right arm pain and swelling. It began about four days ago. She was found to have elevated mortuary beautician and I was called to evaluate her. She denies dysuria or hematuria. She denies nsaid use. She did have cta on previous visit s for PVD. - History Source History Provided By: Patient, Medical Record - Past Medical History Cardio/Vascular: Yes: AFIB, CAD Renal/: Yes: Renal Inusuff ...: No - Alcohol/Substance Use Hx Alcohol Use: No - Smoking History Smoking history: Never smoked Have you smoked in the past 12 months: No - Social History History of Recent Travel: No Home Medications - Allergies Allergies/Adverse Reactions: Allergies Allergy/AdvReac Type Severity Reaction Status Date / Time No Known Allergies Allergy Verified 09/26/19 22:50 - Home Medications Home Medications: Ambulatory Orders Diltiazem Cd [Cardizem Cd -] 240 mg PO DAILY 08/22/19 Hydrochlorothiazide [Hctz -] 25 mg PO DAILY 08/22/19 Losartan Potassium [Cozaar] 100 mg PO DAILY 08/22/19 Metoprolol Succinate [Toprol XL -] 75 mg PO DAILY 08/22/19 Apixaban [Eliquis -] 5 mg PO BID #60 tablet 08/28/19 Atorvastatin Ca [Lipitor] 80 mg PO HS #30 tablet 08/28/19 Clopidogrel Bisulfate [Plavix -] 75 mg PO DAILY #30 tablet 08/28/19 Family Medical History Family History: Denies Review of Systems - Review of Systems Constitutional: reports: Malaise Eyes: reports: No Symptoms HENT: reports: No Symptoms Neck: reports: No Symptoms Cardiovascular: reports: No Symptoms Gastrointestinal: reports: No Symptoms Genitourinary: reports: No Symptoms Musculoskeletal: reports: Other (right arm pain) Integumentary: reports: No Symptoms Neurological: reports: No Symptoms Endocrine: reports: No Symptoms Hematology/Lymphatic: reports: No Symptoms Psychiatric: reports: No Symptoms Physical Exam Vital Signs: Vital Signs Temperature 98.7 F 09/27/19 14:00 Pulse Rate 69 09/27/19 14:00 Respiratory Rate 18 07/03/20 14:00 Blood Pressure 148/66 09/27/19 14:00 O2 Sat by Pulse Oximetry (%) 96 09/27/19 09:00 Constitutional: Yes: Calm Eyes: Yes: Conjunctiva Clear HENT: Yes: Atraumatic Neck: Yes: Supple Cardiovascular: Yes: S1, S2 Respiratory: Yes: CTA Bilaterally Gastrointestinal: Yes: Soft Renal/: Yes: WNL Musculoskeletal: Yes: WNL Neurological: Yes: Oriented Labs: CBC, BMP 09/27/19 06:23 09/27/19 06:23 Imaging - Results Chest X-ray: Report Reviewed Problem List - Problems (1) CKD (chronic kidney disease) Code(s): N18.9 - CHRONIC KIDNEY DISEASE, UNSPECIFIED Assessment/Plan Current Medications Generic Name Dose Route Start Last Admin Trade Name Freq PRN Reason Stop Dose Admin Acetaminophen 650 mg 09/27/19 03:47 Tylenol - PO Q4H PRN PAIN LEVEL 6-10 Apixaban 2.5 mg 09/27/19 10:36 Eliquis - PO BID [facility] Atorvastatin Calcium 40 mg 09/27/19 22:00 Lipitor - PO HS JHONATHAN Clopidogrel Bisulfate 75 mg 09/27/19 10:00 09/27/19 09:45 Plavix - PO 75 mg DAILY JHONATHAN Administration Diltiazem HCl 240 mg 09/27/19 10:00 09/27/19 09:44 Cardizem Cd - PO 240 mg DAILY JHONATHAN Administration Vancomycin HCl 1,250 mg/ 250 mls @ 125 mls/hr 09/27/19 23:00 Dextrose IVPB 09/28/19 00:59 ONCE ONE Metoprolol Succinate 75 mg 09/27/19 10:00 09/27/19 09:44 Toprol Xl - PO 75 mg DAILY JHONATHAN Administration Vancomycin HCl 1,000 mg 09/27/19 11:00 Vancomycin (Pre-Docked) IVPB BID [facility] Protocol Laboratory Tests 08/27/19 08/28/19 09/26/19 06:00 05:50 20:50 WBC 10.2 H Hgb 9.6 L Sodium BUN Creatinine 1.2 1.1 09/26/19 09/27/19 09/27/19 20:50 06:23 06:23 WBC 10.8 H Hgb 8.9 L Sodium 137 BUN 23.6 H Creatinine 1.4 H 1.5 H Impression 1. CKD with acute component 2. dvt 3. pvd 4. htn 5. cad 6. chf Plan - agree with holding losartan and hctz - repeat labs in am - check ua - check renal ultrasound - mortuary beautician higher than last visit - monitor vanco levels
[2019-09-27 20:24] LABS: EPI CELLS 28 /uL (0-25.1); HYALINE CASTS 2 /uL (0-3.1); URINE APPEARANCE CLEAR; URINE BACTERIA 64 /uL (0-1359); URINE BILIRUBIN NEGATIVE (NEGATIVE); URINE COLOR YELLOW; URINE GLUCOSE (UA) NEGATIVE (NEGATIVE); URINE KETONE NEGATIVE (NEGATIVE); URINE LEUK ESTERASE 2+ (NEGATIVE); URINE NITRITE NEGATIVE (NEGATIVE); URINE PROTEIN 1+ (NEGATIVE); URINE RBC 8 /uL (0-23.9); URINE WBC 60 /uL (0-25.8)
[2019-09-27] MEDS ORDERED: PT OWN MED DRAWER 7, Y5N ONE (21:11)
[2019-09-27] MEDS ORDERED: ATORVASTATIN CA 80 MG TABLET (FP) PO SCH (22:00)
[2019-09-27] MEDS: APIXABAN 2.5 MG TABLET PO SCH (22:22)
[2019-09-27] MEDS: ACETAMINOPHEN 325 MG TABLET (FP) PO PRN (22:22)
[2019-09-27] MEDS: ATORVASTATIN CA 40 MG TABLET (FP) PO SCH (22:22)
[2019-09-27] MEDS ORDERED: VANCOMYCIN HCL 1,250 MG in DEXTROSE 5%-WATER - 250 ML IVPB ONE (23:00)
--- NOTE | 2019-09-27 23:44 | PN ---
Progress Note (short form) - Note Progress Note: ID CONSULT DICTATED
[2019-09-28] MEDS: ACETAMINOPHEN 325 MG TABLET (FP) PO PRN (03:55)
[2019-09-28] MEDS ORDERED: LIDOCAINE 5% TOPICAL PATCH TP ONE (04:00)
[2019-09-28 08:33] LABS: BASO % 0.3 % (0-2.0); HEMATOCRIT 28.2 % (32.4-45.2); HEMOGLOBIN 9.2 GM/dL (10.7-15.3); LYMPH % 11.2 % (8-40); MCH 29.3 pg (25.7-33.7); MCHC 32.8 g/dl (32.0-36.0); MEAN CELL VOLUME 89.3 fl (80-96); MEAN PLT VOLUME 8.1 fl (7.5-11.1); MONO % 12.6 % (3.8-10.2); NEUT % 75.9 % (42.8-82.8); PLATELET COUNT 259 K/MM3 (134-434); RBC 3.16 M/mm3 (3.60-5.2); RDW 13.2 % (11.6-15.6); WHITE BLOOD COUNT 10.7 K/mm3 (4.0-10.0)
[2019-09-28] MEDS ORDERED: PT OWN MED DRAWER 7, Y5N ONE (08:52)
[2019-09-28 09:03] LABS: ALBUMIN 2.4 g/dl (3.4-5.0); BILIRUBIN,TOTAL 0.8 mg/dL (0.2-1); BLOOD UREA NITROGEN 19.5 mg/dL (7-18); CALCIUM 8.5 mg/dL (8.5-10.1); CREATININE 1.2 mg/dL (0.55-1.3); POTASSIUM 3.8 mmol/L (3.5-5.1); TOT PROT 6.2 g/dl (6.4-8.2)
[2019-09-28] MEDS: metoPROLOL SUCCINATE 25 MG TAB.SR.24H (FP) PO SCH (09:11)
[2019-09-28] MEDS: APIXABAN 2.5 MG TABLET PO SCH ×2 (09:11→22:00)
[2019-09-28] MEDS: CLOPIDOGREL BISULFATE 75 MG TABLET (FP) PO SCH (09:11)
[2019-09-28] MEDS ORDERED: LIDOCAINE HCL 1%, 10 MG/ML (50 mL VIAL) SQ ONE (12:45)
[2019-09-28] MEDS ORDERED: TRIAMCINOLONE ACET 40MG/1ML VIAL IJ ONE (13:00)
--- NOTE | 2019-09-28 13:26 | CONSULT ---
Consult - text type - Consultation Consultation Note: ORTHOPEDIC SURGERY CONSULTATION NOTE Department of Orthopedic Surgery HISTORY OF PRESENT ILLNESS Deborah Mason is an 84 year old female with a past medical history significant for HTN, CAD, CHF, CKD, Afib/Flutter (on Plavix and eliquis), s/p Stent in RLE and Hx of DVT in LLE. She was admitted to [facility] with right shoulder pain. The orthopedic service was consulted for further evaluation of the right shoulder. The patient is a poor historian and the history of was obtained by the patient, granddaughter Tracie, and daughter Deisy. The right shoulde pain began 4 days ago. They deny any injury. The patient notes pain to the right shoulder which improves with rest. Denies any other bone or joint pain. Denies numbness, tingling or other constitutional complaints. They deny any fevers or chills at home, but noted that the patient had a fever in the ED. The patient is retired. Denies tobacco use, drug use, alcohol abuse. The patient lives with family and uses a cane and walker at baseline. Active Problems Problem Status Category Onset CKD (chronic kidney disease) Acute Medical Cellulitis Acute Medical Pneumonia Acute Medical Right arm pain Acute Medical Past Medical History Cardio/Vascular AFIB,CAD Renal/ Renal Inusuff Social History Smoking history Never smoked Hx Alcohol Use No History of Recent Travel No Allergies Allergy/AdvReac Type Severity Reaction Status Date / Time No Known Allergies Allergy Verified 09/26/19 22:50 Active Medications Generic Name Dose Route Start Last Admin Trade Name Freq PRN Reason Stop Dose Admin Acetaminophen 650 mg 09/27/19 03:47 09/28/19 03:55 Tylenol - PO 650 mg Q4H PRN Administration PAIN LEVEL 6-10 Apixaban 2.5 mg 09/27/19 10:36 09/28/19 09:11 Eliquis - PO 2.5 mg BID JHONATHAN Administration Atorvastatin Calcium 40 mg 09/27/19 22:00 09/27/19 22:22 Lipitor - PO 40 mg HS JHONATHAN Administration Clopidogrel Bisulfate 75 mg 09/27/19 10:00 09/28/19 09:11 Plavix - PO 75 mg DAILY JHONATHAN Administration Diltiazem HCl 240 mg 09/27/19 10:00 09/28/19 09:10 Cardizem Cd - PO 240 mg DAILY JHONATHAN Administration Metoprolol Succinate 75 mg 09/27/19 10:00 09/28/19 09:11 Toprol Xl - PO 75 mg DAILY JHONATHAN Administration Miscellaneous 1 each 09/28/19 16:00 Lidoderm Patch Removal MC 09/28/19 16:01 ONCE@1600 ONE Vancomycin HCl 1,000 mg 09/27/19 11:00 Vancomycin (Pre-Docked) IVPB BID [facility] Protocol Vital Signs (last) Temp Pulse Resp BP Pulse Ox 98.2 F 74 20 144/69 95 09/28/19 09:00 09/28/19 09:00 09/28/19 09:00 09/28/19 09:00 09/28/19 09:00 Intake and Output 09/26/19 09/27/19 09/28/19 23:59 23:59 23:59 Intake Total 1100 260 10 Balance 1100 260 10 Intake: IV 1000 10 10 LR 1000 SL 10 10 IVPB 100 250 Other: Voiding Method Bedside Commode Bedside Commode # Unmeasured Voids Void 2 1 Bowel Movement Yes # Bowel Movements 1 Weight 160 lb 138 lb 9.6 oz Height 5 ft 3 in 5 ft 3 in Body Mass Index (BMI) 28.3 24.5 Weight Measurement Method Built in [facility] Weight Measurement Method Estimated by Staff Laboratory 09/28/19 07:14 09/28/19 07:14 PT with INR 29.80 SEC (9.7-13.0) H 09/26/19 20:50 PTT (Actin FS) 34.0 SECONDS (25.2-36.5) 09/26/19 20:50 Microbiology 09/26/19 22:45 Blood - Peripheral Venous Blood Culture - Preliminary NO GROWTH OBTAINED AFTER 24 HOURS, INCUBATION TO CONTINUE FOR 4 DAYS. 09/26/19 22:45 Blood - Peripheral Venous Blood Culture - Preliminary NO GROWTH OBTAINED AFTER 24 HOURS, INCUBATION TO CONTINUE FOR 4 DAYS. FAMILY HISTORY Reviewed and noncontributory. REVIEW OF SYMPTOMS A twelve-point review of systems was performed and was negative except as noted in HPI. PHYSICAL EXAM Constitutional: Alert and following commands. Right Upper Extremity: Skin warm, dry, and intact; no lesions, rashes or ulcers noted. Muscle mass equal and symmetric to contralateral side. No atrophy noted. No masses or effusions noted. Tender to palpation at right shoulder; nontender throughout rest of extremity. Full passive and active ROM elbow, wrist and fingers, free from pain. Decreased active range of motion of the shoulder. Joints stable with no pathologic laxity. M/R/U/MSK/AX motor intact; SILT distally; 2+ radial pulses; Cap refill brisk. Tone and reflexes normal. Left Upper Extremity: Skin warm, dry, and intact; no lesions, rashes or ulcers noted. Muscle mass equal and symmetric to contralateral side. No atrophy noted. No masses or effusions noted. No tenderness to palpation. Full passive and active ROM shoulder. elbow, wrist and fingers, free from pain. Joints stable with no pathologic laxity. M/R/U/MSK/AX motor intact; SILT distally; 2+ radial pulses; Cap refill brisk. Tone and reflexes normal. Right Lower Extremity: No tenderness to palpation. No cords or calf tenderness. No significant calf/ankle edema. Full passive and active ROM, free from pain. EHL/TA/GS motor intact; SILT distally; 2+ DP pulses; Cap refill brisk. Tone and reflexes normal. Left Lower Extremity: No tenderness to palpation. No cords or calf tenderness. No significant calf/ankle edema. Full passive and active ROM, free from pain. EHL/TA/GS motor intact; SILT distally; 2+ DP pulses; Cap refill brisk. Tone and reflexes normal. IMAGING CT images and radiographs of the right shoulder were personally reviewed. They show significant glenohumeral joint space narrowing, subchondral sclerosis and cysts, and periarticular osteophyte formation. There is no fracture, dislocation, and no lytic or blastic lesions. ASSESSMENT AND PLAN Deborah Mason is a 84 year old female presenting with right sided severe glenohumeral arthritis. There is a low clinical suspicion for infection or septic arthritis. We have reviewed the imaging and clinical findings in detail, as well as their potential implications. After appropriate informed discussion, the patients knee was aspirated. - Pain control: Transition to oral pain medications, minimize narcotic use - DVT prophylaxis - Ice/Elevation right shoulder - Elevate HOB, encourage oral intake - Nutrition optimization, decubitus precautions heel/sacrum - PT/OT; WBAT Procedure Note for a Shoulder Cortisone Injection: Glenohumeral Joint We obtained consent by the patient, however she was unable to sign consent due to pain. In addition we obtained consent from her health care proxy (daughter) Yvon. Consent was obtained after discussing the risks, benefits, alternatives, including, but not limited to bleeding, pain, infection, post injection-flare, skin disruption or hypopigmentation, and temporary increase in serum blood glucose. Laterality was confirmed (timeout). The shoulder was prepped with chlorhexidine and alcohol. 3 mL of 1% lidocaine was used to anesthetize the skin. No fluid was able to be aspirated form the joint. A formulation of 1 cc of 40 mg/mL Kenalog and 8 cc of 1% lidocaine was injected into the glenohumeral joint space with a 21 gauge needle without difficulty. The site was cleaned and dressed with a band aid. The patient tolerated this well and there were no complications. She has significant relief of symptoms after the injection. All questions were answered. Thank you for involving our team in the care of this patient. We will follow the patient with you. Please have the patient follow up in our office in 1-2 weeks. Please call us at [phone] with questions.
--- NOTE | 2019-09-28 13:44 | PN ---
Progress Note (short form) - Note Progress Note: ID CONSULT DICTATED AWAKE, ALERT C/O R SHOULDER PAIN NO RECURRENT FEVER NO CHILLS WBC 10.8 BC (-) AFEBRILE COR S1S2 LUNGS CLEAR ABDOMEN SOFT, NON TENDER L SHOULDER TENDER TO PASSIVE ROM NO ERYTHEMA/ WARMTH R UE OSTEOARTHRITIS R SHOULDER ARTHROCENTESIS PERFORMED NO FLUID OBTAINED S/P FEVER CKD OBSERVE OFF ANTIBIOTICS CASE DISCUSSED WITH HOSPITALIST AND ORTHO
[2019-09-28] MEDS ORDERED: LIDOCAINE PATCH REMOVAL MC ONE (16:00)
--- NOTE | 2019-09-28 18:53 | PN ---
Physical Exam: SUBJECTIVE: Patient seen and examined at bedside, c/o stiffness R shoulder w/ markedly limited ROM for R shoulder steroid/lido injection today with Ortho service. VSS. OBJECTIVE: Vital Signs Period Temp Pulse Resp BP Sys/Arnold Pulse Ox Last 24 Hr 98.2 F-99 F 74-81 18-20 127-150/60-69 95-95 GA AAox3, speaking in full sentences, pleasant elderly female HEENT NC/AT, neck supple, dry MM Chest CTAB, no crackles or wheezing CVS S1, S2+, PAC+, ARLENE+ Abd Soft, NT, ND, BS+ Ext Limited/stiff ROM R shoulder w/ pain on passive manipulation, Same with L shoulder, good radial pulses b/l Laboratory Results - last 24 hr 09/27/19 09/27/19 09/27/19 01:29 19:00 19:00 WBC RBC Hgb Hct MCV MCH MCHC RDW Plt Count MPV Absolute Neuts (auto) Neutrophils % Lymphocytes % Monocytes % Eosinophils % Basophils % Nucleated RBC % Sodium Potassium Chloride Carbon Dioxide Anion Gap BUN Creatinine Est GFR (CKD-EPI)AfAm Est GFR (CKD-EPI)NonAf Random Glucose Calcium Phosphorus Magnesium Total Bilirubin AST ALT Alkaline Phosphatase Total Protein Albumin Urine Color Yellow Urine Appearance Clear Urine pH 5.0 Ur Specific [place] 1.018 Urine Protein 1+ H Urine Glucose (UA) Negative Urine Ketones Negative Urine Blood Negative Urine Nitrite Negative Urine Bilirubin Negative Urine Urobilinogen 1.0 Ur Leukocyte Esterase 2+ H Urine WBC (Auto) 60 Urine RBC (Auto) 8 Urine Casts (Auto) 2 U Epithel Cells (Auto) 28 Urine Bacteria (Auto) 64 Ur Random Creatinine Ur Random Sodium 48 Ur Random Potassium 42.0 Ur Random Chloride 55 L Random Vancomycin COVID-19 (YONI) Not detected 09/27/19 09/28/19 09/28/19 19:00 07:14 07:14 WBC 10.7 H RBC 3.16 L Hgb 9.2 L Hct 28.2 L MCV 89.3 MCH 29.3 MCHC 32.8 RDW 13.2 Plt Count 259 MPV 8.1 Absolute Neuts (auto) 8.1 H Neutrophils % 75.9 Lymphocytes % 11.2 D Monocytes % 12.6 H Eosinophils % 0.0 D Basophils % 0.3 Nucleated RBC % 0 Sodium Potassium Chloride Carbon Dioxide Anion Gap BUN Creatinine Est GFR (CKD-EPI)AfAm Est GFR (CKD-EPI)NonAf Random Glucose Calcium Phosphorus Magnesium Total Bilirubin AST ALT Alkaline Phosphatase Total Protein Albumin Urine Color Urine Appearance Urine pH Ur Specific [place] Urine Protein Urine Glucose (UA) Urine Ketones Urine Blood Urine Nitrite Urine Bilirubin Urine Urobilinogen Ur Leukocyte Esterase Urine WBC (Auto) Urine RBC (Auto) Urine Casts (Auto) U Epithel Cells (Auto) Urine Bacteria (Auto) Ur Random Creatinine 109.0 Ur Random Sodium Ur Random Potassium Ur Random Chloride Random Vancomycin 18.9 COVID-19 (YONI) 09/28/19 07:14 WBC RBC Hgb Hct MCV MCH MCHC RDW Plt Count MPV Absolute Neuts (auto) Neutrophils % Lymphocytes % Monocytes % Eosinophils % Basophils % Nucleated RBC % Sodium 137 Potassium 3.8 Chloride 100 Carbon Dioxide 26 Anion Gap 12 BUN 19.5 H Creatinine 1.2 Est GFR (CKD-EPI)AfAm 47.39 Est GFR (CKD-EPI)NonAf 40.89 Random Glucose 95 Calcium 8.5 Phosphorus 3.0 Magnesium 2.0 Total Bilirubin 0.8 AST 12 L ALT 10 L Alkaline Phosphatase 68 Total Protein 6.2 L Albumin 2.4 L Urine Color Urine Appearance Urine pH Ur Specific [place] Urine Protein Urine Glucose (UA) Urine Ketones Urine Blood Urine Nitrite Urine Bilirubin Urine Urobilinogen Ur Leukocyte Esterase Urine WBC (Auto) Urine RBC (Auto) Urine Casts (Auto) U Epithel Cells (Auto) Urine Bacteria (Auto) Ur Random Creatinine Ur Random Sodium Ur Random Potassium Ur Random Chloride Random Vancomycin COVID-19 (YONI) Active Medications Generic Name Dose Route Start Last Admin Trade Name Freq PRN Reason Stop Dose Admin Acetaminophen 650 mg 09/27/19 03:47 09/28/19 03:55 Tylenol - PO 650 mg Q4H PRN Administration PAIN LEVEL 6-10 Apixaban 2.5 mg 09/27/19 10:36 09/28/19 09:11 Eliquis - PO 2.5 mg BID JHONATHAN Administration Atorvastatin Calcium 40 mg 09/27/19 22:00 09/27/19 22:22 Lipitor - PO 40 mg HS JHONATHAN Administration Clopidogrel Bisulfate 75 mg 09/27/19 10:00 09/28/19 09:11 Plavix - PO 75 mg DAILY JHONATHAN Administration Diltiazem HCl 240 mg 09/27/19 10:00 09/28/19 09:10 Cardizem Cd - PO 240 mg DAILY JHONATHAN Administration Metoprolol Succinate 75 mg 09/27/19 10:00 09/28/19 09:11 Toprol Xl - PO 75 mg DAILY JHONATHAN Administration ASSESSMENT: 84 F Degenerative shoulder arthritis w/ bursitis HTN CAD CHF CKD Afib/Flutter (on Plavix and eliquis) s/p Stent in RLE and Hx of DVT in LLE Plan: For Shoulder injection today PT of shoulders b/l tylenol PRn for breakthrough pain cont. AC/Statin/Plavix Low concern for septic arthritis (no joint aspirate on injection) DVT ppx: AC Visit type - Emergency Visit Emergency Visit: Yes ED Registration Date: 09/27/19 Care time: The patient presented to the Emergency Department on the above date and was hospitalized for further evaluation of their emergent condition. - New Patient This patient is new to me today: No - Critical Care Critical Care patient: No - Discharge Referral Referred to [facility] Med P.C.: No
--- NOTE | 2019-09-28 20:29 | CONS ---
INFECTIOUS DISEASE CONSULTATION DATE OF CONSULTATION: DATE OF DICTATION: 09/28/2019 The patient is an 84-year-old female who is evaluated for possible septic arthritis of the right shoulder and cellulitis of the right upper extremity. History was obtained from the chart as she cannot give a reliable history secondary to her mental status. According to the notes, she was brought to the emergency room by family members after she was noted to have worsening right upper extremity pain and swelling for the past 4-5 days. According to her daughter, she did not sustain any trauma to the upper extremity and had not fallen. She was evaluated where her temperature was 101.4. A Doppler exam was performed and was negative for DVT. She was empirically treated with vancomycin and Zosyn. At the present time, she is awake and responsive. She complains of right shoulder pain. PAST MEDICAL HISTORY: Positive for hypertension, atrial fibrillation, coronary artery disease, congestive heart failure, chronic kidney disease. ALLERGIES: No known allergies. MEDICATIONS: Include vancomycin, Zosyn, Zithromax, Eliquis, Plavix, Lipitor, Cardizem, Toprol. SOCIAL HISTORY: She resides in the community. She is a nonsmoker, nondrinker. SYSTEMS REVIEW: Neurologic: No loss of consciousness, seizure activity, focal weakness. Cardiac: Negative chest pain or palpitations. Respiratory: Negative cough or sputum production. Gastrointestinal: Negative vomiting or diarrhea. Genitourinary: Negative for urinary tract infection. LABORATORY DATA: White count 10.8, hematocrit 27.6, platelet count 263. Creatinine 1.5. Urinalysis: White cells 60. Uric acid 6.8. Blood cultures negative. PHYSICAL EXAMINATION: General: She is an elderly female. Vital Signs: Temperature 98.5; blood pressure 150/60; pulse 72, regular; respirations 16 per minute. HEENT: Sclerae are anicteric. Heart: Sounds S1, S2. Lungs: Clear. Abdomen: Soft and nontender. Extremities: Negative for pedal edema. Positive chronic venous stasis dermatitis, lower extremities bilaterally. Right Shoulder: There is slight swelling to the right shoulder with tenderness to palpation and decreased passive range of motion. There is no appreciable erythema or warmth. There is slight swelling of the wrist area; however, again, no erythema or warmth. IMPRESSION: 1. Acute flare osteoarthritis. 2. Status post fever. 3. Chronic kidney disease. Orthopedics has been consulted for arthrocentesis. No clinical evidence of cellulitis at this time. Patient does not appear to be acutely toxic. Would observe off antibiotic therapy. Thank you for the kind referral. SHIRLEY CALVERT M.D. [id number]
[2019-09-28] MEDS: ATORVASTATIN CA 40 MG TABLET (FP) PO SCH (22:00)
[2019-09-29 08:56] LABS: BASO % 0.1 % (0-2.0); HEMATOCRIT 27.6 % (32.4-45.2); HEMOGLOBIN 9.1 GM/dL (10.7-15.3); LYMPH % 14.1 % (8-40); MCH 29.3 pg (25.7-33.7); MCHC 32.8 g/dl (32.0-36.0); MEAN CELL VOLUME 89.2 fl (80-96); MEAN PLT VOLUME 8.5 fl (7.5-11.1); MONO % 4.3 % (3.8-10.2); NEUT % 81.5 % (42.8-82.8); PLATELET COUNT 299 K/MM3 (134-434); RBC 3.09 M/mm3 (3.60-5.2); RDW 13.4 % (11.6-15.6)
[2019-09-29 09:18] LABS: ALBUMIN 2.2 g/dl (3.4-5.0); BILIRUBIN,TOTAL 0.4 mg/dL (0.2-1); BLOOD UREA NITROGEN 30.2 mg/dL (7-18); CALCIUM 8.7 mg/dL (8.5-10.1); CREATININE 1.3 mg/dL (0.55-1.3); TOT PROT 6.3 g/dl (6.4-8.2)
[2019-09-29] MEDS: CLOPIDOGREL BISULFATE 75 MG TABLET (FP) PO SCH (09:29)
[2019-09-29] MEDS: APIXABAN 2.5 MG TABLET PO SCH ×2 (09:29→21:47)
[2019-09-29] MEDS: metoPROLOL SUCCINATE 25 MG TAB.SR.24H (FP) PO SCH (09:29)
--- NOTE | 2019-09-29 11:31 | PN ---
Progress Note (short form) - Note Progress Note: RENAL pt is awake and alert says she feels better Last Vital Signs Temp Pulse Resp BP Pulse Ox 98.1 F 87 20 140/79 98 09/29/19 09:00 09/29/19 09:00 09/29/19 09:00 09/29/19 09:00 09/29/19 09:00 lungs clear cvs s1s2 irreg, +diogo abd soft ext no edema neuro a+ox3 CBC, BMP 09/29/19 07:44 09/29/19 07:44 Current Medications Generic Name Dose Route Start Last Admin Trade Name Freq PRN Reason Stop Dose Admin Acetaminophen 650 mg 09/27/19 03:47 09/28/19 03:55 Tylenol - PO 650 mg Q4H PRN Administration PAIN LEVEL 6-10 Apixaban 2.5 mg 09/27/19 10:36 09/29/19 09:29 Eliquis - PO 2.5 mg BID JHONATHAN Administration Atorvastatin Calcium 40 mg 09/27/19 22:00 09/28/19 22:00 Lipitor - PO 40 mg HS JHONATHAN Administration Clopidogrel Bisulfate 75 mg 09/27/19 10:00 09/29/19 09:29 Plavix - PO 75 mg DAILY JHONATHAN Administration Diltiazem HCl 240 mg 09/27/19 10:00 09/29/19 09:30 Cardizem Cd - PO 240 mg DAILY JHONATHAN Administration Metoprolol Succinate 75 mg 09/27/19 10:00 09/29/19 09:29 Toprol Xl - PO 75 mg DAILY JHONATHAN Administration Impression 1. CKD with acute component 2. h/o dvt, but no dvt on current doppler of upper extremity 3. pvd 4. htn 5. cad 6. chf 7. bilateral kidney atrophy and renal cysts 8 proteinuria 9 afib Plan no changes for now avoid nephrotoxins and hypotension follow renal function keep off diuretics for now MV
--- NOTE | 2019-09-29 14:32 | PN ---
Progress Note (short form) - Note Progress Note: ORTHOPEDIC SURGERY PROGRESS NOTE Department of Orthopedic Surgery SUBJECTIVE No acute events overnight. Right shoulder pain improved. No new complaints currently. Denies chest pain, shortness of breath, or calf pain. No nausea or vomiting. Tolerating oral intake. PHYSICAL EXAMINATION General: Alert, oriented, cooperative and no distress. Right Upper Extremity: Skin warm, dry, and intact; no lesions, rashes or ulcers noted. Muscle mass equal and symmetric to contralateral side. No atrophy noted. No masses or effusions noted. Less tenderness to right shoulder; nontender throughout rest of extremity. Full passive and active ROM elbow, wrist and fingers, free from pain. Improved AROM of the shoulder and no pain with gentle PROM. Joints stable with no pathologic laxity. M/R/U/MSK/AX motor intact; SILT distally; 2+ radial pulses; Cap refill brisk. Tone and reflexes normal. Left Upper Extremity: Skin warm, dry, and intact; no lesions, rashes or ulcers noted. Muscle mass equal and symmetric to contralateral side. No atrophy noted. No masses or effusions noted. No tenderness to palpation. Full passive and active ROM shoulder. elbow, wrist and fingers, free from pain. Joints stable with no pathologic laxity. M/R/U/MSK/AX motor intact; SILT distally; 2+ radial pulses; Cap refill brisk. Tone and reflexes normal. DVT Exam: No evidence of DVT seen on physical exam; No cords or calf tenderness; No significant calf/ankle edema. Intake & Output 09/27/19 09/28/19 09/29/19 23:59 23:59 23:59 Intake Total 260 390 Balance 260 390 Intake: IV 10 10 SL 10 10 IVPB 250 Oral 380 Other: Voiding Method Bedside Commode Toilet Toilet # Unmeasured Voids Void 2 1 400 Bowel Movement Yes Yes No # Bowel Movements 1 1 Weight 138 lb 9.6 oz 134 lb Height 5 ft 3 in Body Mass Index (BMI) 24.5 Weight Measurement Method Built in Bedscale Built in Bedscale Active Medications Generic Name Dose Route Start Last Admin Trade Name Freq PRN Reason Stop Dose Admin Acetaminophen 650 mg 09/27/19 03:47 09/28/19 03:55 Tylenol - PO 650 mg Q4H PRN Administration PAIN LEVEL 6-10 Apixaban 2.5 mg 09/27/19 10:36 09/29/19 09:29 Eliquis - PO 2.5 mg BID JHONATHAN Administration Atorvastatin Calcium 40 mg 09/27/19 22:00 09/28/19 22:00 Lipitor - PO 40 mg HS JHONATHAN Administration Clopidogrel Bisulfate 75 mg 09/27/19 10:00 09/29/19 09:29 Plavix - PO 75 mg DAILY JHONATHAN Administration Diltiazem HCl 240 mg 09/27/19 10:00 09/29/19 09:30 Cardizem Cd - PO 240 mg DAILY JHONATHAN Administration Metoprolol Succinate 75 mg 09/27/19 10:00 09/29/19 09:29 Toprol Xl - PO 75 mg DAILY JHONATHAN Administration Vital Signs (last) Temp Pulse Resp BP Pulse Ox 98.1 F 87 20 140/79 98 09/29/19 09:00 09/29/19 09:00 09/29/19 09:00 09/29/19 09:00 09/29/19 09:00 Laboratory (coagulation) PT with INR 29.80 SEC (9.7-13.0) H 09/26/19 20:50 Laboratory 09/29/19 07:44 09/29/19 07:44 Microbiology 09/26/19 22:45 Blood - Peripheral Venous Blood Culture - Preliminary NO GROWTH OBTAINED AFTER 48 HOURS, INCUBATION TO CONTINUE FOR 3 DAYS. 09/26/19 22:45 Blood - Peripheral Venous Blood Culture - Preliminary NO GROWTH OBTAINED AFTER 48 HOURS, INCUBATION TO CONTINUE FOR 3 DAYS. ASSESSMENT AND PLAN Deborah Mason is a 84 year old female presenting with right sided severe glenohumeral arthritis. Status post right glenohumeral cortisone inj ection. She is doing well and her symptoms have significantly improved. - Pain control: minimize narcotic use - DVT prophylaxis - Ice/Elevation right shoulder - Elevate HOB, encourage oral intake - Nutrition optimization, decubitus precautions heel/sacrum - PT/OT; WBAT; AROM/AAROM/PROM Bilateral UE All questions were answered. Thank you for involving our team in the care of t his patient. We will follow the patient with you. Please have the patient follow up in our office in 1-2 weeks. Please call us at [phone] with questions.
--- NOTE | 2019-09-29 18:58 | PN ---
Physical Exam: SUBJECTIVE: Patient seen and examined at bedside, ROM improved R shoulder post injection, feeling better. Dispo likely to SNF/[facility] for continued PT. VSS. OBJECTIVE: Vital Signs Period Temp Pulse Resp BP Sys/Arnold Pulse Ox Last 24 Hr 98.1 F-98.1 F 65-87 20-20 140-144/63-79 96-98 GA AAox3, speaking in full sentences, pleasant elderly female HEENT NC/AT, neck supple, dry MM Chest CTAB, no crackles or wheezing CVS S1, S2+, PAC+, ARLENE+ Abd Soft, NT, ND, BS+ Ext Improved R shoulder ROM both passive/active, L shoulder improved ROM able to now abduct >30 degrees b/l. Laboratory Results - last 24 hr 09/29/19 09/29/19 07:44 07:44 WBC 7.0 RBC 3.09 L Hgb 9.1 L Hct 27.6 L MCV 89.2 MCH 29.3 MCHC 32.8 RDW 13.4 Plt Count 299 MPV 8.5 Absolute Neuts (auto) 5.7 Neutrophils % 81.5 Lymphocytes % 14.1 D Monocytes % 4.3 Eosinophils % 0.0 Basophils % 0.1 Nucleated RBC % 0 Sodium 139 Potassium 4.0 Chloride 102 Carbon Dioxide 30 Anion Gap 7 L BUN 30.2 H Creatinine 1.3 Est GFR (CKD-EPI)AfAm 43.02 Est GFR (CKD-EPI)NonAf 37.12 Random Glucose 120 H Calcium 8.7 Total Bilirubin 0.4 AST 23 ALT 16 Alkaline Phosphatase 68 Total Protein 6.3 L Albumin 2.2 L Active Medications Generic Name Dose Route Start Last Admin Trade Name Keyurq PRN Reason Stop Dose Admin Acetaminophen 650 mg 09/27/19 03:47 09/28/19 03:55 Tylenol - PO 650 mg Q4H PRN Administration PAIN LEVEL 6-10 Apixaban 2.5 mg 09/27/19 10:36 09/29/19 09:29 Eliquis - PO 2.5 mg BID JHONATHAN Administration Atorvastatin Calcium 40 mg 09/27/19 22:00 09/28/19 22:00 Lipitor - PO 40 mg HS JHONATHAN Administration Clopidogrel Bisulfate 75 mg 09/27/19 10:00 09/29/19 09:29 Plavix - PO 75 mg DAILY JHONATHAN Administration Diltiazem HCl 240 mg 09/27/19 10:00 09/29/19 09:30 Cardizem Cd - PO 240 mg DAILY JHONATHAN Administration Metoprolol Succinate 75 mg 09/27/19 10:00 09/29/19 09:29 Toprol Xl - PO 75 mg DAILY JHONATHAN Administration ASSESSMENT: 84 F Degenerative shoulder arthritis w/ bursitis HTN CAD CHF CKD Afib/Flutter (on Plavix and eliquis) s/p Stent in RLE and Hx of DVT in LLE Plan: Markedly improved pain/ROM after shoulder injection, continue PT of shoulders Tylenol prn for breakthrough pain cont. AC/Statin/Plavix Low concern for septic arthritis (no joint aspirate on injection) PT for dispo DVT ppx: AC Visit type - Emergency Visit Emergency Visit: Yes ED Registration Date: 09/27/19 Care time: The patient presented to the Emergency Department on the above date and was hospitalized for further evaluation of their emergent condition. - New Patient This patient is new to me today: No - Critical Care Critical Care patient: No - Discharge Referral Referred to [facility] Med P.C.: No
[2019-09-29] MEDS: VANCOMYCIN 1 GM in D5W (PRE-DOCKED) 1,000 MG/250 ML IVPB SCH (19:33)
[2019-09-29] MEDS: ACETAMINOPHEN 325 MG TABLET (FP) PO PRN (20:45)
[2019-09-29] MEDS: ATORVASTATIN CA 40 MG TABLET (FP) PO SCH (21:47)
[2019-09-30 09:35] LABS: BASO % 0.1 % (0-2.0); HEMATOCRIT 28.7 % (32.4-45.2); HEMOGLOBIN 9.4 GM/dL (10.7-15.3); LYMPH % 10.7 % (8-40); MCHC 32.7 g/dl (32.0-36.0); MEAN CELL VOLUME 88.8 fl (80-96); MEAN PLT VOLUME 8.2 fl (7.5-11.1); MONO % 4.7 % (3.8-10.2); NEUT % 84.5 % (42.8-82.8); PLATELET COUNT 403 K/MM3 (134-434); RBC 3.23 M/mm3 (3.60-5.2); RDW 13.5 % (11.6-15.6); WHITE BLOOD COUNT 9.9 K/mm3 (4.0-10.0)
[2019-09-30] MEDS ORDERED: PT OWN MED DRAWER 7, Y5N ONE (09:45)
[2019-09-30] MEDS: APIXABAN 2.5 MG TABLET PO SCH ×2 (09:48→21:49)
[2019-09-30] MEDS: ACETAMINOPHEN 325 MG TABLET (FP) PO PRN ×2 (09:49→18:18)
[2019-09-30] MEDS: metoPROLOL SUCCINATE 25 MG TAB.SR.24H (FP) PO SCH (09:50)
[2019-09-30] MEDS: CLOPIDOGREL BISULFATE 75 MG TABLET (FP) PO SCH (09:50)
[2019-09-30 10:05] LABS: POTASSIUM 4.2 mmol/L (3.5-5.1)
[2019-09-30 10:22] LABS: ALBUMIN 2.5 g/dl (3.4-5.0); BILIRUBIN,TOTAL 0.7 mg/dL (0.2-1); BLOOD UREA NITROGEN 42.9 mg/dL (7-18); CALCIUM 8.7 mg/dL (8.5-10.1); CREATININE 1.7 mg/dL (0.55-1.3); TOT PROT 6.9 g/dl (6.4-8.2)
--- NOTE | 2019-09-30 15:48 | PN ---
Progress Note (short form) - Note Progress Note: ORTHOPEDIC SURGERY PROGRESS NOTE Department of Orthopedic Surgery SUBJECTIVE No acute events overnight. Right shoulder pain controlled. No new complaints currently. Denies chest pain, shortness of breath, or calf pain. No nausea or vomiting. Tolerating oral intake. PHYSICAL EXAMINATION General: Alert, oriented, cooperative and no distress. Right Upper Extremity: Skin warm, dry, and intact; no lesions, rashes or ulcers noted. Muscle mass equal and symmetric to contralateral side. No atrophy noted. No masses or effusions noted. Less tenderness to right shoulder; nontender throughout rest of extremity. Full passive and active ROM elbow, wrist and fingers, free from pain. Improved AROM of the shoulder and no pain with gentle PROM. Joints stable with no pathologic laxity. M/R/U/MSK/AX motor intact; SILT distally; 2+ radial pulses; Cap refill brisk. Tone and reflexes normal. Left Upper Extremity: Skin warm, dry, and intact; no lesions, rashes or ulcers noted. Muscle mass equal and symmetric to contralateral side. No atrophy noted. No masses or effusions noted. No tenderness to palpation. Full passive and active ROM shoulder. elbow, wrist and fingers, free from pain. Joints stable with no pathologic laxity. M/R/U/MSK/AX motor intact; SILT distally; 2+ radial pulses; Cap refill brisk. Tone and reflexes normal. DVT Exam: No evidence of DVT seen on physical exam; No cords or calf tenderness; No significant calf/ankle edema. Intake & Output 09/28/19 09/29/19 09/30/19 23:59 23:59 23:59 Intake Total 390 0 Balance 390 0 Intake: IV 10 SL 10 IVPB 0 Oral 380 Other: Voiding Method Toilet Toilet Toilet # Unmeasured Voids Void 1 2 2 Bowel Movement Yes Yes No # Bowel Movements 1 1 Weight 134 lb 134 lb 4.8 oz Weight Measurement Method Built in Bedscale Built in Bedscale Active Medications Generic Name Dose Route Start Last Admin Trade Name Freq PRN Reason Stop Dose Admin Acetaminophen 650 mg 09/27/19 03:47 09/30/19 09:49 Tylenol - PO 650 mg Q4H PRN Administration PAIN LEVEL 6-10 Apixaban 2.5 mg 09/27/19 10:36 09/30/19 09:48 Eliquis - PO 2.5 mg BID JHONATHAN Administration Atorvastatin Calcium 40 mg 09/27/19 22:00 09/29/19 21:47 Lipitor - PO 40 mg HS JHONATHAN Administration Clopidogrel Bisulfate 75 mg 09/27/19 10:00 09/30/19 09:50 Plavix - PO 75 mg DAILY JHONATHAN Administration Diltiazem HCl 240 mg 09/27/19 10:00 09/30/19 09:50 Cardizem Cd - PO 240 mg DAILY JHONATHAN Administration Metoprolol Succinate 75 mg 09/27/19 10:00 09/30/19 09:50 Toprol Xl - PO 75 mg DAILY JHONATHAN Administration Vital Signs (last) Temp Pulse Resp BP Pulse Ox 97.5 F L 55 20 130/51 97 09/30/19 14:00 09/30/19 14:00 09/30/19 14:00 09/30/19 14:00 09/30/19 09:00 Laboratory (coagulation) PT with INR 29.80 SEC (9.7-13.0) H 09/26/19 20:50 Laboratory 09/30/19 08:05 09/30/19 08:05 ASSESSMENT AND PLAN Deborah Mason is a 84 year old female presenting with right sided severe glenohumeral arthritis. Status post right glenohumeral cortisone injection. She is doing well and her symptoms have significantly improved. - No orthopedic surgical intervention at this time - Continue with medical management - Pain control: minimize narcotic use - DVT prophylaxis - Monitor vitals/labs - Ice/Elevation right shoulder - Elevate HOB, encourage oral intake - Nutrition optimization, decubitus precautions heel/sacrum - PT/OT; WBAT; AROM/AAROM/PROM Bilateral UE All questions were answered. Thank you for involving our team in the care of this patient. We will follow the patient with you. Please have the patient follow up in our office in 1-2 weeks. Please call us at [phone] with questions.
--- NOTE | 2019-09-30 16:23 | PN ---
Progress Note, Physician History of Present Illness: Pt seen and examined at bedside. She is awake and appears comfortable. She is out of bed to chair and tolerating diet. - Current Medication List Current Medications: Active Medications Acetaminophen (Tylenol -) 650 mg PO Q4H PRN PRN Reason: PAIN LEVEL 6-10 Last Admin: 09/30/19 09:49 Dose: 650 mg Documented by: Apixaban (Eliquis -) 2.5 mg PO BID [facility] Last Admin: 09/30/19 09:48 Dose: 2.5 mg Documented by: Atorvastatin Calcium (Lipitor -) 40 mg PO HS [facility] Last Admin: 09/29/19 21:47 Dose: 40 mg Documented by: Clopidogrel Bisulfate (Plavix -) 75 mg PO DAILY [facility] Last Admin: 09/30/19 09:50 Dose: 75 mg Documented by: Diltiazem HCl (Cardizem Cd -) 240 mg PO DAILY [facility] Last Admin: 09/30/19 09:50 Dose: 240 mg Documented by: Metoprolol Succinate (Toprol Xl -) 75 mg PO DAILY [facility] Last Admin: 09/30/19 09:50 Dose: 75 mg Documented by: - Objective Vital Signs: Vital Signs Temperature 97.5 F L 09/30/19 14:00 Pulse Rate 55 L 09/30/19 14:00 Respiratory Rate 20 09/30/19 14:00 Blood Pressure 130/51 L 09/30/19 14:00 O2 Sat by Pulse Oximetry (%) 97 09/30/19 09:00 Constitutional: Yes: Calm Eyes: Yes: Conjunctiva Clear HENT: Yes: Atraumatic Neck: Yes: Supple Cardiovascular: Yes: S1, S2 Respiratory: Yes: CTA Bilaterally Gastrointestinal: Yes: Soft Genitourinary: Yes: WNL Edema: No Neurological: Yes: Oriented Psychiatric: Yes: Oriented Labs: CBC, BMP 09/30/19 08:05 09/30/19 08:05 INR, PTT INR 2.50 (0.83-1.09) H 09/26/19 20:50 Problem List - Problems (1) CKD (chronic kidney disease) Code(s): N18.9 - CHRONIC KIDNEY DISEASE, UNSPECIFIED Assessment/Plan Current Medications Generic Name Dose Route Start Last Admin Trade Name Freq PRN Reason Stop Dose Admin Acetaminophen 650 mg 09/27/19 03:47 09/30/19 09:49 Tylenol - PO 650 mg Q4H PRN Administration PAIN LEVEL 6-10 Apixaban 2.5 mg 09/27/19 10:36 09/30/19 09:48 Eliquis - PO 2.5 mg BID JHONATHAN Administration Atorvastatin Calcium 40 mg 09/27/19 22:00 09/29/19 21:47 Lipitor - PO 40 mg HS JHONATHAN Administration Clopidogrel Bisulfate 75 mg 09/27/19 10:00 09/30/19 09:50 Plavix - PO 75 mg DAILY JHONATHAN Administration Diltiazem HCl 240 mg 09/27/19 10:00 09/30/19 09:50 Cardizem Cd - PO 240 mg DAILY JHONATHAN Administration Metoprolol Succinate 75 mg 09/27/19 10:00 09/30/19 09:50 Toprol Xl - PO 75 mg DAILY JHONATHAN Administration Impression 1. CKD with acute component 2. dvt 3. pvd 4. htn 5. cad 6. chf Plan - renal function is worse today - repeat labs in am - pt has been off if losartan and thiazide - will order more extensive workup if still elevated tomorrow - renal ultrasound reviewed - avoid hypotension
--- NOTE | 2019-09-30 17:04 | PN ---
Teaching Attending Note Name of Resident: Madie Lara ATTENDING PHYSICIAN STATEMENT I saw and evaluated the patient. I reviewed the resident's note and discussed the case with the resident. I agree with the resident's findings and plan as documented. SUBJECTIVE: Patient seen and examined at bedside, feels much better after R shoulder injection, stable for DC home with Ortho clinic follow up. VSS. OBJECTIVE: Vital Signs Period Temp Pulse Resp BP Sys/Arnold Pulse Ox Last 24 Hr 98.1 F-98.1 F 65-87 20-20 140-144/63-79 96-98 GA AAox3, speaking in full sentences, pleasant elderly female HEENT NC/AT, neck supple, dry MM Chest CTAB, no crackles or wheezing CVS S1, S2+, PAC+, ARLENE+ Abd Soft, NT, ND, BS+ Ext Improved R shoulder ROM both passive/active, L shoulder improved ROM able to now abduct >30 degrees b/l. Vital Signs - 24 hr 09/29/19 09/29/19 09/29/19 17:17 21:00 21:48 Temperature 98.2 F 98.1 F Pulse Rate 67 66 Respiratory 20 18 Rate Blood Pressure 153/52 L 156/64 O2 Sat by Pulse 98 Oximetry (%) 09/30/19 09/30/19 09/30/19 06:00 09:00 14:00 Temperature 98.6 F 97.5 F L 97.5 F L Pulse Rate 75 74 55 L Respiratory 18 18 20 Rate Blood Pressure 141/58 L 154/62 130/51 L O2 Sat by Pulse 97 Oximetry (%) Microbiology 09/26/19 22:45 Blood - Peripheral Venous Blood Culture - Preliminary NO GROWTH OBTAINED AFTER 72 HOURS, INCUBATION TO CONTINUE FOR 2 DAYS. 09/26/19 22:45 Blood - Peripheral Venous Blood Culture - Preliminary NO GROWTH OBTAINED AFTER 72 HOURS, INCUBATION TO CONTINUE FOR 2 DAYS. Laboratory Results - last 24 hr 09/30/19 09/30/19 08:05 08:05 WBC 9.9 RBC 3.23 L Hgb 9.4 L Hct 28.7 L MCV 88.8 MCH 29.0 MCHC 32.7 RDW 13.5 Plt Count 403 D MPV 8.2 Absolute Neuts (auto) 8.3 H Neutrophils % 84.5 H Lymphocytes % 10.7 D Monocytes % 4.7 Eosinophils % 0.0 Basophils % 0.1 Nucleated RBC % 0 Sodium 139 Potassium 4.2 Chloride 102 Carbon Dioxide 25 Anion Gap 11 BUN 42.9 H Creatinine 1.7 H Est GFR (CKD-EPI)AfAm 31.10 Est GFR (CKD-EPI)NonAf 26.84 Random Glucose 108 H Calcium 8.7 Total Bilirubin 0.7 AST 42 H ALT 42 Alkaline Phosphatase 77 Total Protein 6.9 Albumin 2.5 L Home Medications Medication Instructions Recorded Diltiazem Cd [Cardizem Cd -] 240 mg PO DAILY 08/22/19 Metoprolol Succinate [Toprol XL -] 75 mg PO DAILY 08/22/19 Apixaban [Eliquis -] 5 mg PO BID #60 tablet 08/28/19 Atorvastatin Ca [Lipitor] 80 mg PO HS #30 tablet 08/28/19 Clopidogrel Bisulfate [Plavix -] 75 mg PO DAILY #30 tablet 08/28/19 Current Medications Generic Name Dose Route Start Last Admin Trade Name Freq PRN Reason Stop Dose Admin Acetaminophen 650 mg 09/27/19 03:47 09/30/19 09:49 Tylenol - PO 650 mg Q4H PRN Administration PAIN LEVEL 6-10 Apixaban 2.5 mg 09/27/19 10:36 09/30/19 09:48 Eliquis - PO 2.5 mg BID JHONATHAN Administration Atorvastatin Calcium 40 mg 09/27/19 22:00 09/29/19 21:47 Lipitor - PO 40 mg HS JHONATHAN Administration Clopidogrel Bisulfate 75 mg 09/27/19 10:00 09/30/19 09:50 Plavix - PO 75 mg DAILY JHONATHAN Administration Diltiazem HCl 240 mg 09/27/19 10:00 09/30/19 09:50 Cardizem Cd - PO 240 mg DAILY JHONATHAN Administration Metoprolol Succinate 75 mg 09/27/19 10:00 09/30/19 09:50 Toprol Xl - PO 75 mg DAILY JHONATHAN Administration ASSESSMENT AND PLAN: 84 F Degenerative shoulder arthritis w/ bursitis TONY on CKD HTN CAD HFpEF Afib/Flutter (on Plavix and eliquis) s/p Stent in RLE and Hx of DVT in LLE Plan: TONY on CKD, ?HCTZ/ARB induced, held both, send urine lytes/CRE, gentle hydration and repeat chem in AM Markedly improved pain/ROM after shoulder injection, continue PT of shoulders, will need follow up in Ortho clinic (avoid systemic NSAIDs) Tylenol prn for breakthrough pain cont. AC/Statin/Plavix Low concern for septic arthritis (no joint aspirate on injection), pain markedly improved after injection PT for dispo DVT ppx: AC
[2019-09-30] MEDS ORDERED: SODIUM CHLORIDE 1,000 ML IV SCH (17:45)
--- NOTE | 2019-09-30 17:54 | PN ---
Physical Exam: SUBJECTIVE: Patient seen and examined at bedside this morning. No acute events. Patient reports improvement of R arm pain and swelling. OBJECTIVE: Vital Signs Temperature 97.5 F L 09/30/19 14:00 Pulse Rate 55 L 09/30/19 14:00 Respiratory Rate 20 09/30/19 14:00 Blood Pressure 130/51 L 09/30/19 14:00 O2 Sat by Pulse Oximetry (%) 97 09/30/19 09:00 GENERAL: The patient is awake, alert, in no acute distress. NECK: supple. LUNGS: Breath sounds equal, clear to auscultation bilaterally. HEART: Regular rate and rhythm, S1, S2. ABDOMEN: Soft, nontender, nondistended, normoactive bowel sound. EXTREMITIES: 2+ pulses, warm, well-perfused. Pulses 2+ bilaterally. Supervisor Area strength equal and bilateral. No clubbing or cyanosis. SKIN: Warm, dry, normal turgor Laboratory Results - last 24 hr 09/30/19 09/30/19 08:05 08:05 WBC 9.9 RBC 3.23 L Hgb 9.4 L Hct 28.7 L MCV 88.8 MCH 29.0 MCHC 32.7 RDW 13.5 Plt Count 403 D MPV 8.2 Absolute Neuts (auto) 8.3 H Neutrophils % 84.5 H Lymphocytes % 10.7 D Monocytes % 4.7 Eosinophils % 0.0 Basophils % 0.1 Nucleated RBC % 0 Sodium 139 Potassium 4.2 Chloride 102 Carbon Dioxide 25 Anion Gap 11 BUN 42.9 H Creatinine 1.7 H Est GFR (CKD-EPI)AfAm 31.10 Est GFR (CKD-EPI)NonAf 26.84 Random Glucose 108 H Calcium 8.7 Total Bilirubin 0.7 AST 42 H ALT 42 Alkaline Phosphatase 77 Total Protein 6.9 Albumin 2.5 L Active Medications Generic Name Dose Route Start Last Admin Trade Name Freq PRN Reason Stop Dose Admin Acetaminophen 650 mg 09/27/19 03:47 09/30/19 09:49 Tylenol - PO 650 mg Q4H PRN Administration PAIN LEVEL 6-10 Apixaban 2.5 mg 09/27/19 10:36 09/30/19 09:48 Eliquis - PO 2.5 mg BID JHONATHAN Administration Atorvastatin Calcium 40 mg 09/27/19 22:00 09/29/19 21:47 Lipitor - PO 40 mg HS JHONATHAN Administration Clopidogrel Bisulfate 75 mg 09/27/19 10:00 09/30/19 09:50 Plavix - PO 75 mg DAILY JHONATHAN Administration Diltiazem HCl 240 mg 09/27/19 10:00 09/30/19 09:50 Cardizem Cd - PO 240 mg DAILY JHONATHAN Administration Sodium Chloride 1,000 mls @ 75 mls/hr 09/30/19 17:45 Normal Saline - IV ASDIR JHONATHAN Metoprolol Succinate 75 mg 09/27/19 10:00 09/30/19 09:50 Toprol Xl - PO 75 mg DAILY JHONATHAN Administration ASSESSMENT/PLAN: Pt is an 84 year old female with pmhx of htn, cad, chf, ckd, a-fib, and dvt who present with right arm pain and swelling. #RUE pain and swelling - likely 2/2 osteoarthritis, now improved - no evidence of septic arthritis - s/p glenohumeral cortisone injection - RUE U/S did not reveal DVT - CT of Right upper extremity done, no significant findings - Ortho (Dr. Esparza) consulted. REcommendations appreciated. - no orthopedic surgical intervention at this time -continue medical management - pain control: minimize narcotic use - Ice packs/ elevation right shoulder - PT/OT, WBAT/ AROM/AAROM/PROM b/l LE - follow up as outpatient #TONY/CKD - Cr increased to 1.7 today (baseline 1.1) - Continue to Hold Losartan and HCTZ - Renal ultrasound - mild R renal atrophy, mild diffuse bilateral cortical atrophy - avoid nephrotoxic agents - Eliquis dose decreased to 2.5mg in setting of age and TONY - monitor renal function, I&O #HTN -BP stable, will hold Losartan and HCTZ in setting of TONY -continue CArdizem and Toprol 75mg daily #CAD -continue Lipitor, PLavix #Hx of Afib -Continue Eliquis and Toprol 75mg daily #Hx of DVT -s/p RLE stent, On Eliquis #FEN -IV NS @ 75cc/hr -Electrolytes wnl, routine bmp monitoring -Sodium controlled diet #Prophylaxis -Eliquis 2.5mg bid #Disposition -full code -pending kidney function tomorrow, may dc to snf Visit type - Emergency Visit Emergency Visit: Yes ED Registration Date: 09/27/19 Care time: The patient presented to the Emergency Department on the above date and was hospitalized for further evaluation of their emergent condition. - New Patient This patient is new to me today: No - Critical Care Critical Care patient: No ATTENDING PHYSICIAN STATEMENT I saw and evaluated the patient. I reviewed the resident's note and discussed the case with the resident. I agree with the resident's findings and plan as documented. SUBJECTIVE: OBJECTIVE: ASSESSMENT AND PLAN:
[2019-09-30] MEDS: ATORVASTATIN CA 40 MG TABLET (FP) PO SCH (21:49)
[2019-10-01 08:02] LABS: BLOOD UREA NITROGEN 52.9 mg/dL (7-18); CALCIUM 8.1 mg/dL (8.5-10.1); CREATININE 1.4 mg/dL (0.55-1.3); MAGNESIUM 2.3 mg/dL (1.8-2.4); POTASSIUM 4.3 mmol/L (3.5-5.1)
[2019-10-01] MEDS ORDERED: PT OWN MED DRAWER 7, Y5N ONE (09:23)
[2019-10-01] MEDS: ACETAMINOPHEN 325 MG TABLET (FP) PO PRN (09:29)
[2019-10-01] MEDS: CLOPIDOGREL BISULFATE 75 MG TABLET (FP) PO SCH (09:29)
[2019-10-01] MEDS: metoPROLOL SUCCINATE 25 MG TAB.SR.24H (FP) PO SCH (09:30)
[2019-10-01] MEDS: APIXABAN 2.5 MG TABLET PO SCH (09:30)
--- NOTE | 2019-10-01 09:36 | PN ---
Teaching Attending Note Name of Resident: Madie Lara ATTENDING PHYSICIAN STATEMENT I saw and evaluated the patient. I reviewed the resident's note and discussed the case with the resident. I agree with the resident's findings and plan as documented. SUBJECTIVE: Patient feels comfortable less pain in the right shoulder OBJECTIVE: Vital Signs Temperature 97.9 F 10/01/19 06:00 Pulse Rate 62 10/01/19 06:00 Respiratory Rate 18 10/01/19 06:00 Blood Pressure 147/57 L 10/01/19 06:00 O2 Sat by Pulse Oximetry (%) 98 09/30/19 21:00 General: Elderly woman, comfortable, not in distress HEENT mucous membranes moist, no anemia, no jaundice, PERRLA, no nystagmus Neck: No JVD, supple, no bruit, thyroid palpably normal, normal carotid pulsations. Chest: Nontender, clear to auscultation bilaterally CVS: S1-S2 Irregular no murmur/gallop/rub Abdomen: Nondistended, soft, bowel sounds present. Extremities: No edema., No Calf tenderness, pulses present REPAIRER HELPER: AO X3 , no gross motor sensory deficit CBC, BMP 09/30/19 08:05 10/01/19 06:50 Active Medications Acetaminophen (Tylenol -) 650 mg PO Q4H PRN PRN Reason: PAIN LEVEL 6-10 Last Admin: 10/01/19 09:29 Dose: 650 mg Documented by: Apixaban (Eliquis -) 2.5 mg PO BID [facility] Last Admin: 10/01/19 09:30 Dose: 2.5 mg Documented by: Atorvastatin Calcium (Lipitor -) 40 mg PO HS [facility] Last Admin: 09/30/19 21:49 Dose: 40 mg Documented by: Clopidogrel Bisulfate (Plavix -) 75 mg PO DAILY [facility] Last Admin: 10/01/19 09:29 Dose: 75 mg Documented by: Diltiazem HCl (Cardizem Cd -) 240 mg PO DAILY [facility] Last Admin: 10/01/19 09:29 Dose: 240 mg Documented by: Sodium Chloride (Normal Saline -) 1,000 mls @ 75 mls/hr IV ASDIR [facility] Last Admin: 09/30/19 18:18 Dose: 75 mls/hr Documented by: Metoprolol Succinate (Toprol Xl -) 75 mg PO DAILY [facility] Last Admin: 10/01/19 09:30 Dose: 75 mg Documented by: ASSESSMENT AND PLAN:4 year old woman with a PMH of HTN, CAD, CHF, CKD, Afib/flutter (On Plavix and Eliquis), Arterial insufficiency, RLE stent, DVT in LLE and Thyroid nodule presenting with right shoulder pain and discharge severe glenohumeral arthritis underwent cortisone injection with symptomatic improvement, yesterday developed mild TONY now improving 1. Right shoulder pain: Due to glenohumeral arthritis status post local corticosteroid injection, deferred NSAIDs due to TONY, physical therapy 2. TONY on CKD: Baseline CKD stage III developed mild elevation of creatinine now trending normal, and increase p.o. hydration avoid nephrotoxic medications 3. Hypertension: Well-controlled continue current medications. 4. CAD: Continue beta-blockers and statin patient is on Plavix for lower ext remities stent. 5. Atrial fibrillation/flutter: Rate control continue apixaban 7. PAD: Status post right lower stent Increase p.o. hydration, rest
--- NOTE | 2019-10-01 13:26 | DS ---
Physical Exam: SUBJECTIVE: Patient seen and examined at bedside this morning. No acute events overnight. OBJECTIVE: Vital Signs Temperature 98 F 10/01/19 10:00 Pulse Rate 75 10/01/19 10:00 Respiratory Rate 18 10/01/19 10:00 Blood Pressure 146/63 10/01/19 10:00 O2 Sat by Pulse Oximetry (%) 97 10/01/19 09:00 PHYSICAL EXAM GENERAL: The patient is awake, alert, in no acute distress. NECK: supple. LUNGS: Breath sounds equal, clear to auscultation bilaterally. HEART: Regular rate and rhythm, S1, S2. ABDOMEN: Soft, nontender, nondistended, normoactive bowel sound. EXTREMITIES: 2+ pulses, warm, well-perfused. Pulses 2+ bilaterally. Dredge Worker strength equal and bilateral. No clubbing or cyanosis. SKIN: Warm, dry, normal turgor LABS Laboratory Results - last 24 hr 10/01/19 06:50 Sodium 140 Potassium 4.3 Chloride 107 Carbon Dioxide 27 Anion Gap 7 L BUN 52.9 H Creatinine 1.4 H Est GFR (CKD-EPI)AfAm 39.33 Est GFR (CKD-EPI)NonAf 33.94 Random Glucose 102 Calcium 8.1 L Magnesium 2.3 HOSPITAL COURSE: Date of Admission:09/27/19 Date of Discharge: 10/01/19 ASSESSMENT/PLAN: Pt is an 84 year old female with pmhx of htn, cad, chf, ckd, a-fib, and dvt who present with right arm pain and swelling. #RUE pain and swelling - likely 2/2 osteoarthritis, now improved - no evidence of septic arthritis - s/p glenohumeral cortisone injection - RUE U/S did not reveal DVT - CT of Right upper extremity done, no significant findings - Ortho (Dr. Esparza) consulted. REcommendations appreciated. - no orthopedic surgical intervention at this time - continue medical management - pain control: minimize narcotic use - Ice packs/ elevation right shoulder - PT/OT, WBAT/ AROM/AAROM/PROM b/l LE - follow up as outpatient #TONY/CKD - Hold Losartan and HCTZ - Renal ultrasound - mild R renal atrophy, mild diffuse bilateral cortical atrophy - avoid nephrotoxic agents - Eliquis dose decreased to 2.5mg in setting of age and TONY - To follow up with Dr. Samarneh to determined if HCTZ or Losartan can be restarted #HTN -BP stable, will hold Losartan and HCTZ -continue CArdizem and Toprol 75mg daily #CAD -continue Lipitor, PLavix #Hx of Afib -Continue Eliquis and Toprol 75mg daily #Hx of DVT -s/p RLE stent, On Eliquis Minutes to complete discharge: 37 Discharge Summary Problems reviewed: Yes Reason For Visit: CELLULITIS, PAIN OF RIGHT UPPER EXTREMITY, Current Active Problems CKD (chronic kidney disease) (Acute) Cellulitis (Acute) Pneumonia (Acute) Right arm pain (Acute) Condition: Improved - Instructions Diet, Activity, Other Instructions: Your visit You have been admitted to the hospital because of right arm pain and swelling. This was likely because of arthritis. You were evaluated by the orthopedic surgeon, and a steroid injection was given to your right shoulder and the pain improved. You were also noted to have abnormal kidney function. You were evaluated by nephrology. Your blood pressure medications, Losartan and Hydrochlorothiazide has been put on hold and your kidney function improved. Please do not take these medications until you follow up with your primary care doctor or the c software engineer. You may need a repeat blood work (BMP) to check your kidney function. Medications Please take note of the following changes to your medications: 1. STOP taking Losartan and Hydrochlorothiazide until you follow up with your kidney doctor. Please continue your other home medications. Follow up Please follow up with your primary care doctor within 1 week. Please follow up with the orthopedic surgeon (Dr. Esparza) in 1-2 weeks.. A referral has been provided. Please call the office to schedule an appointment. Please follow up with the c software engineer (Dr. Garcia) within 1-2 weeks. A referral has been provided. Additional info Please call 911 or go to the ED if with any worsening fever, chills, headache, dizziness, chest pain, shortness of breath, belly pain, diarrhea, or any new concerns noted. Referrals: [facility] MD [Primary Care Provider] - Michael Esparza DO [Staff Physician] - Ever Garcia MD [Staff Physician] - Disposition: HOME - Home Medications Comprehensive Discharge Medication List: Ambulatory Orders Diltiazem Cd [Cardizem Cd -] 240 mg PO DAILY 08/22/19 Metoprolol Succinate [Toprol XL -] 75 mg PO DAILY 08/22/19 Apixaban [Eliquis -] 5 mg PO BID #60 tablet 08/28/19 Atorvastatin Ca [Lipitor] 80 mg PO HS #30 tablet 08/28/19 Clopidogrel Bisulfate [Plavix -] 75 mg PO DAILY #30 tablet 08/28/19 This patient is new to me today: No Emergency Visit: Yes ED Registration Date: 09/27/19 Care time: The patient presented to the Emergency Department on the above date and was hospitalized for further evaluation of their emergent condition. Critical Care patient: No - Discharge Referral Referred to [facility] No ATTENDING PHYSICIAN STATEMENT I saw and evaluated the patient. I reviewed the resident's note and discussed the case with the resident. I agree with the resident's findings and plan as documented. SUBJECTIVE: OBJECTIVE: ASSESSMENT AND PLAN:
--- NOTE | 2019-10-01 15:14 | PN ---
Progress Note, Physician History of Present Illness: Pt seen and examined at bedside. SHe is awake and alert. She denies shortness of breath. - Current Medication List Current Medications: Active Medications Acetaminophen (Tylenol -) 650 mg PO Q4H PRN PRN Reason: PAIN LEVEL 6-10 Last Admin: 10/01/19 09:29 Dose: 650 mg Documented by: Apixaban (Eliquis -) 2.5 mg PO BID [facility] Last Admin: 10/01/19 09:30 Dose: 2.5 mg Documented by: Atorvastatin Calcium (Lipitor -) 40 mg PO HS [facility] Last Admin: 09/30/19 21:49 Dose: 40 mg Documented by: Clopidogrel Bisulfate (Plavix -) 75 mg PO DAILY [facility] Last Admin: 10/01/19 09:29 Dose: 75 mg Documented by: Diltiazem HCl (Cardizem Cd -) 240 mg PO DAILY [facility] Last Admin: 10/01/19 09:29 Dose: 240 mg Documented by: Sodium Chloride (Normal Saline -) 1,000 mls @ 75 mls/hr IV ASDIR [facility] Last Admin: 09/30/19 18:18 Dose: 75 mls/hr Documented by: Metoprolol Succinate (Toprol Xl -) 75 mg PO DAILY [facility] Last Admin: 10/01/19 09:30 Dose: 75 mg Documented by: - Objective Vital Signs: Vital Signs Temperature 98 F 10/01/19 10:00 Pulse Rate 75 10/01/19 10:00 Respiratory Rate 18 10/01/19 10:00 Blood Pressure 146/63 10/01/19 10:00 O2 Sat by Pulse Oximetry (%) 97 10/01/19 09:00 Constitutional: Yes: Calm Eyes: Yes: Conjunctiva Clear HENT: Yes: Atraumatic Neck: Yes: Supple Cardiovascular: Yes: S1, S2 Respiratory: Yes: CTA Bilaterally Gastrointestinal: Yes: Soft Genitourinary: Yes: WNL Edema: LLE: Trace, RLE: Trace Neurological: Yes: Oriented Psychiatric: Yes: Oriented Labs: CBC, BMP 09/30/19 08:05 10/01/19 06:50 INR, PTT INR 2.50 (0.83-1.09) H 09/26/19 20:50 Problem List - Problems (1) CKD (chronic kidney disease) Code(s): N18.9 - CHRONIC KIDNEY DISEASE, UNSPECIFIED Assessment/Plan Current Medications Generic Name Dose Route Start Last Admin Trade Name Elissa PRN Reason Stop Dose Admin Acetaminophen 650 mg 09/27/19 03:47 10/01/19 09:29 Tylenol - PO 650 mg Q4H PRN Administration PAIN LEVEL 6-10 Apixaban 2.5 mg 09/27/19 10:36 10/01/19 09:30 Eliquis - PO 2.5 mg BID HJONATHAN Administration Atorvastatin Calcium 40 mg 09/27/19 22:00 09/30/19 21:49 Lipitor - PO 40 mg HS JHONATHAN Administration Clopidogrel Bisulfate 75 mg 09/27/19 10:00 10/01/19 09:29 Plavix - PO 75 mg DAILY JHONATHAN Administration Diltiazem HCl 240 mg 09/27/19 10:00 10/01/19 09:29 Cardizem Cd - PO 240 mg DAILY JHONATHAN Administration Sodium Chloride 1,000 mls @ 75 mls/hr 09/30/19 17:45 09/30/19 18:18 Normal Saline - IV 75 mls/hr ASDIR JHONATHAN Administration Metoprolol Succinate 75 mg 09/27/19 10:00 10/01/19 09:30 Toprol Xl - PO 75 mg DAILY JHONATHAN Administration Impression 1. CKD with acute component 2. dvt 3. pvd 4. htn 5. cad 6. 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
[2019-10-01 15:49] VITALS: BP 130/62; PULSE 64; TEMP 97.6
== END 2019-10-01 15:59 | DRG 554 ==
LOC: JER 19:32 → JERBED 09-27 00:21 → J8W 09-27 03:04
PROVIDERS: ADMIT Internal Medicine; ATTEND Internal Medicine
PROC: 3E0U33Z Introduction of Anti-inflammatory into Joints, Percutaneous Approach (ICD-10-PCS; principal; 2019-09-28)
PROC: 3E0U3BZ Introduction of Anesthetic Agent into Joints, Percutaneous Approach (ICD-10-PCS; 2019-09-28)
DX: M13.811 Other specified arthritis, right shoulder (principal); N17.9 Acute kidney failure, unspecified; I48.92 Unspecified atrial flutter; J98.11 Atelectasis; E46 Unspecified protein-calorie malnutrition; L03.113 Cellulitis of right upper limb; I13.0 Hypertensive heart and chronic kidney disease with heart failure and stage 1 through stage 4 chronic kidney disease, or unspecified chronic kidney disease; N18.3 Chronic kidney disease, stage 3 (moderate); I25.10 Atherosclerotic heart disease of native coronary artery without angina pectoris; I50.9 Heart failure, unspecified; I48.91 Unspecified atrial fibrillation; N28.1 Cyst of kidney, acquired; E88.09 Other disorders of plasma-protein metabolism, not elsewhere classified; Z68.23 Body mass index [BMI] 23.0-23.9, adult
CPT/HCPCS: 36415; 71045-TC-FY; 73030-TC-RT-FY; 73200-TC-RT; 76775-TC; 80048; 80053; 81003; 82436; 82550; 82565; 82728; 83540; 83550; 83605; 83735; 84100; 84133; 84300; 84484; 84550; 85025; 85610; 85730; 86038; 86431; 87040; 93005; 93010; 93971; 97116-GP; 97161-GP; 99285-25; G0480; J0131; U0003

== ENCOUNTER 2020-06-11 05:20 | Day surgery (SDC) | payer OTHER ==
[2020-06-10 12:19] VITALS: BMI 20.7
[2020-06-11] MEDS ORDERED: PROPOFOL 20 ML ONE ×4 (06:43)
[2020-06-11] MEDS ORDERED: fentaNYL CITRATE 250 MCG/5 ML VIAL ONE (06:44)
[2020-06-11] MEDS ORDERED: KETAMINE HCL 200 MG/20 ML VIAL ONE (06:44)
[2020-06-11] MEDS ORDERED: EPHEDRINE SULFATE/0.9% NACL/PF 50 MG/10 ML SYRINGE NR ONE (06:47)
[2020-06-11] MEDS ORDERED: LIDOCAINE HCL 1%, 10 MG/ML (20ML VIAL) ONE (07:11)
[2020-06-11] MEDS ORDERED: HEPARIN NA (PORCINE) 5,000 UNITS/ML 1ML VIAL ONE (07:11)
[2020-06-11] MEDS ORDERED: LIDOCAINE HCL 1%, 10 MG/ML (20ML VIAL) INF ONE (07:49)
[2020-06-11] MEDS ORDERED: IOHEXOL 300 MG/ML INFUS..BTL IJ ONE (07:49)
[2020-06-11] MEDS ORDERED: ceFAZolin SODIUM 1 GM VIAL ONE (08:02)
[2020-06-11] MEDS ORDERED: ONDANSETRON 4 MG/2 ML VIAL IVPUSH PRN (09:04)
[2020-06-11 12:53] VITALS: BP 114/46; PULSE 47; TEMP 97.7
== END 2020-06-11 13:30 | disposition home or self-care (01) ==
LOC: JASU-SURG 05:20
PROVIDERS: ATTEND Surgery Vascular Surgery
PROC: 047Q3ZZ Dilation of Left Anterior Tibial Artery, Percutaneous Approach (ICD-10-PCS; 2020-06-11)
PROC: 047L3ZZ Dilation of Left Femoral Artery, Percutaneous Approach (ICD-10-PCS; principal; 2020-06-11 07:30)
DX: I70.245 Atherosclerosis of native arteries of left leg with ulceration of other part of foot (principal)
CPT/HCPCS: 37225; 37228; C1885; 76000-TC-FY; 94760; J1644

== ENCOUNTER 2020-08-22 09:49 | Inpatient (IN) | payer OTHER ==
[2020-08-22 10:17] VITALS: BMI 21.2
[2020-08-22] MEDS ORDERED: SODIUM CHLORIDE 1,000 ML IV STA (10:43)
[2020-08-22] MEDS ORDERED: FAMOTIDINE 20 MG/50 ML IVPB 20 MG/50 ML MG IVPB ONE ×2 (10:43→10:46)
[2020-08-22] MEDS ORDERED: ACETAMINOPHEN 1000 MG/100 ML VIAL (NON FORMULARY) IVPB ONE (10:43)
[2020-08-22] MEDS ORDERED: ACETAMINOPHEN INJECTION 100 ML IVPB ONE (10:46)
[2020-08-22 11:34] LABS: BASO % 0.8 % (0-2.0); EOS % 0.4 % (0-4.5); HEMATOCRIT 35.1 % (32.4-45.2); HEMOGLOBIN 11.9 GM/dL (10.7-15.3); MCH 30.2 pg (25.7-33.7); MCHC 33.9 g/dl (32.0-36.0); MEAN CELL VOLUME 89.1 fl (80-96); MEAN PLT VOLUME 8.1 fl (7.5-11.1); NEUT % 56.8 % (42.8-82.8); PLATELET COUNT 291 K/MM3 (134-434); RBC 3.94 M/mm3 (3.60-5.2); RDW 13.9 % (11.6-15.6); WHITE BLOOD COUNT 3.8 K/mm3 (4.0-10.0)
[2020-08-22 11:49] LABS: CALCIUM 9.4 mg/dL (8.5-10.1)
[2020-08-22 11:50] LABS: ALBUMIN 2.8 g/dl (3.4-5.0); BLOOD UREA NITROGEN 37.8 mg/dL (7-18)
[2020-08-22 11:53] LABS: CREATININE 2.1 mg/dL (0.55-1.3)
[2020-08-22 11:54] LABS: BILIRUBIN,TOTAL 0.4 mg/dL (0.2-1)
[2020-08-22 11:55] LABS: TOT PROT 6.1 g/dl (6.4-8.2)
[2020-08-22 12:00] LABS: INR 1.51 (0.83-1.09); PROTHROMBIN TIME (PATIENT) 18.1 SEC (9.7-13.0)
[2020-08-22 12:03] LABS: ACTIVATED PTT 27.8 SECONDS (25.2-36.5)
[2020-08-22 12:12] LABS: LACTIC ACID 3.9 mmol/L (0.4-2.0)
[2020-08-22] MEDS ORDERED: SODIUM CHLORIDE 0.9% 1000 ML INFUS.BAG IV ONE (13:15)
[2020-08-22 17:10] LABS: BF WBC & OTHER NUCLEATED CELLS 808 /mm3
[2020-08-22 17:40] LABS: BODY FLUID MONOCYTE 24 %; BODYL FLD EOSINOPHIL 1 %
[2020-08-22 18:41] LABS: URINE APPEARANCE CLEAR; URINE BILIRUBIN NEGATIVE (NEGATIVE); URINE COLOR YELLOW; URINE GLUCOSE (UA) NEGATIVE (NEGATIVE); URINE KETONE NEGATIVE (NEGATIVE); URINE NITRITE NEGATIVE (NEGATIVE); URINE PROTEIN NEGATIVE (NEGATIVE); URINE UROBILINOGEN 0.2 mg/dL (0.2-1.0)
[2020-08-22 18:42] LABS: URINE LEUK ESTERASE NEGATIVE (NEGATIVE)
[2020-08-23] MEDS ORDERED: APIXABAN 2.5 MG TABLET ONE (09:10)
[2020-08-23] MEDS ORDERED: CLOPIDOGREL BISULFATE 75 MG TABLET (FP) ONE (09:11)
[2020-08-23] MEDS: CLOPIDOGREL BISULFATE 75 MG TABLET (FP) PO SCH (09:21)
[2020-08-23] MEDS: APIXABAN 2.5 MG TABLET PO SCH ×2 (09:21→21:12)
[2020-08-23] MEDS: ATENOLOL 50 MG TABLET (FP) PO SCH (09:21)
[2020-08-23] MEDS ORDERED: SODIUM CHLORIDE 1,000 ML IV SCH (14:45)
[2020-08-23] MEDS: DONEPEZIL HCL 10 MG TABLET (FP) PO SCH (21:12)
[2020-08-23] MEDS: ATORVASTATIN CA 40 MG TABLET (FP) PO SCH (21:12)
[2020-08-23] MEDS: ACETAMINOPHEN 500 MG TABLET (FP) PO SCH (21:13)
[2020-08-24 07:15] LABS: HEMATOCRIT 31.5 % (32.4-45.2); HEMOGLOBIN 10.7 GM/dL (10.7-15.3); MCH 30.3 pg (25.7-33.7); MEAN CELL VOLUME 89.3 fl (80-96); PLATELET COUNT 273 K/MM3 (134-434); RBC 3.52 M/mm3 (3.60-5.2); RDW 14.1 % (11.6-15.6); WHITE BLOOD COUNT 2.6 K/mm3 (4.0-10.0)
[2020-08-24 07:20] LABS: INR 1.58 (0.83-1.09); PROTHROMBIN TIME (PATIENT) 19.2 SEC (9.7-13.0)
[2020-08-24 07:32] LABS: ALBUMIN 2.4 g/dl (3.4-5.0); BLOOD UREA NITROGEN 36.4 mg/dL (7-18); MAGNESIUM 1.9 mg/dL (1.8-2.4)
[2020-08-24 07:35] LABS: PHOSPHOROUS 3.1 mg/dL (2.5-4.9)
[2020-08-24 07:36] LABS: TOT PROT 5.2 g/dl (6.4-8.2)
[2020-08-24 07:37] LABS: BILIRUBIN,TOTAL 0.3 mg/dL (0.2-1)
[2020-08-24 07:44] LABS: CALCIUM 7.9 mg/dL (8.5-10.1)
[2020-08-24] MEDS ORDERED: POTASSIUM CHLORIDE TABS 20 MEQ TABLET.ER (FP) PO ONE (08:54)
[2020-08-24] MEDS: ACETAMINOPHEN 500 MG TABLET (FP) PO SCH ×2 (09:30→21:31)
[2020-08-24] MEDS: ATENOLOL 50 MG TABLET (FP) PO SCH (09:31)
[2020-08-24] MEDS: APIXABAN 2.5 MG TABLET PO SCH ×2 (09:31→21:31)
[2020-08-24] MEDS: CLOPIDOGREL BISULFATE 75 MG TABLET (FP) PO SCH (09:31)
[2020-08-24] MEDS: MULTIVITAMINS (DAILY MVI) TABLET (FP) PO SCH (13:13)
[2020-08-24] MEDS ORDERED: DEXTROSE 5%-WATER - 1,000 ML IV SCH (15:00)
[2020-08-24] MEDS ORDERED: DEXTROSE 5%-WATER - 50 ML IVPB ONE (19:31)
[2020-08-24] MEDS ORDERED: cefTRIAXone SODIUM 1 GM VIAL ONE (19:31)
[2020-08-24] MEDS: CEFTRIAXONE 1 GM in DEXTROSE 5%-WATER - 50 ML IVPB SCH (19:34)
[2020-08-24] MEDS: DONEPEZIL HCL 10 MG TABLET (FP) PO SCH (21:31)
[2020-08-24] MEDS: ATORVASTATIN CA 40 MG TABLET (FP) PO SCH (21:31)
[2020-08-25 07:51] LABS: BASO % 0.7 % (0-2.0); EOS % 1.8 % (0-4.5); HEMATOCRIT 29.6 % (32.4-45.2); LYMPH % 32.1 % (8-40); MCHC 33.7 g/dl (32.0-36.0); MEAN PLT VOLUME 7.8 fl (7.5-11.1); MONO % 13.4 % (3.8-10.2); PLATELET COUNT 262 K/MM3 (134-434); RBC 3.33 M/mm3 (3.60-5.2); RDW 14.1 % (11.6-15.6); WHITE BLOOD COUNT 2.9 K/mm3 (4.0-10.0)
[2020-08-25 08:03] LABS: CALCIUM 8.2 mg/dL (8.5-10.1)
[2020-08-25 08:04] LABS: ALBUMIN 2.2 g/dl (3.4-5.0); BLOOD UREA NITROGEN 35.1 mg/dL (7-18)
[2020-08-25 08:07] LABS: CREATININE 1.9 mg/dL (0.55-1.3)
[2020-08-25 08:08] LABS: BILIRUBIN,TOTAL 0.4 mg/dL (0.2-1)
[2020-08-25 08:09] LABS: TOT PROT 4.9 g/dl (6.4-8.2)
[2020-08-25] MEDS ORDERED: cefTRIAXone SODIUM 1 GM VIAL ONE (08:31)
[2020-08-25] MEDS ORDERED: DEXTROSE 5%-WATER - 50 ML IVPB ONE (08:32)
[2020-08-25] MEDS ORDERED: MAGNESIUM OXIDE 400 MG TABLET (FP) PO ONE (09:15)
[2020-08-25] MEDS: ATENOLOL 50 MG TABLET (FP) PO SCH (09:24)
[2020-08-25] MEDS: MULTIVITAMINS THER W-MINERALS COMBO TABLET (FP) PO SCH (09:24)
[2020-08-25] MEDS: APIXABAN 2.5 MG TABLET PO SCH (09:24)
[2020-08-25] MEDS: CLOPIDOGREL BISULFATE 75 MG TABLET (FP) PO SCH (09:24)
[2020-08-25] MEDS: ACETAMINOPHEN 500 MG TABLET (FP) PO SCH ×2 (09:25→21:29)
[2020-08-25] MEDS: MULTIVITAMINS (DAILY MVI) TABLET (FP) PO SCH (09:25)
[2020-08-25] MEDS: CEFTRIAXONE 1 GM in DEXTROSE 5%-WATER - 50 ML IVPB SCH (09:25)
[2020-08-25] MEDS ORDERED: SPIRONOLACTONE 25 MG TABLET PO SCH (10:00)
[2020-08-25] MEDS: ONDANSETRON 4 MG/2 ML VIAL IVPUSH PRN (16:51)
[2020-08-25] MEDS: SPIRONOLACTONE 25 MG TABLET PO SCH (21:36)
[2020-08-25] MEDS: DONEPEZIL HCL 10 MG TABLET (FP) PO SCH (21:36)
[2020-08-25] MEDS: ATORVASTATIN CA 40 MG TABLET (FP) PO SCH (21:36)
[2020-08-26 07:36] LABS: BASO % 0.7 % (0-2.0); EOS % 1.8 % (0-4.5); HEMATOCRIT 32.4 % (32.4-45.2); HEMOGLOBIN 11.1 GM/dL (10.7-15.3); LYMPH % 39.6 % (8-40); MCH 30.4 pg (25.7-33.7); MCHC 34.2 g/dl (32.0-36.0); MEAN CELL VOLUME 88.9 fl (80-96); MEAN PLT VOLUME 7.9 fl (7.5-11.1); NEUT % 48.9 % (42.8-82.8); PLATELET COUNT 309 K/MM3 (134-434); RBC 3.65 M/mm3 (3.60-5.2); RDW 14.3 % (11.6-15.6); WHITE BLOOD COUNT 3.6 K/mm3 (4.0-10.0)
[2020-08-26 07:57] LABS: CALCIUM 8.9 mg/dL (8.5-10.1)
[2020-08-26 07:58] LABS: ALBUMIN 2.4 g/dl (3.4-5.0); BLOOD UREA NITROGEN 40.9 mg/dL (7-18); MAGNESIUM 2.2 mg/dL (1.8-2.4)
[2020-08-26 08:01] LABS: BILIRUBIN,TOTAL 0.3 mg/dL (0.2-1); TOT PROT 5.4 g/dl (6.4-8.2)
[2020-08-26 08:31] LABS: CREATININE 2.1 mg/dL (0.55-1.3)
[2020-08-26] MEDS ORDERED: cefTRIAXone SODIUM 1 GM VIAL ONE (09:00)
[2020-08-26] MEDS ORDERED: DEXTROSE 5%-WATER - 50 ML IVPB ONE (09:00)
[2020-08-26] MEDS: CEFTRIAXONE 1 GM in DEXTROSE 5%-WATER - 50 ML IVPB SCH (09:27)
[2020-08-26] MEDS: ATENOLOL 50 MG TABLET (FP) PO SCH (14:10)
[2020-08-26] MEDS: SPIRONOLACTONE 25 MG TABLET PO SCH ×2 (14:10→21:45)
[2020-08-26] MEDS: MULTIVITAMINS (DAILY MVI) TABLET (FP) PO SCH (14:11)
[2020-08-26] MEDS: MULTIVITAMINS THER W-MINERALS COMBO TABLET (FP) PO SCH (14:11)
[2020-08-26] MEDS: ACETAMINOPHEN 500 MG TABLET (FP) PO SCH ×2 (14:11→21:43)
[2020-08-26 16:09] LABS: HEP B CORE AB, TOT Positive (Negative)
[2020-08-26 18:09] LABS: BODY FLUID ALBUMIN 2.3 g/dL (Not Estab.)
[2020-08-26] MEDS: AMINO ACIDS 4.25%/D5W 1,000 ML IV SCH (20:09)
[2020-08-26] MEDS: APIXABAN 2.5 MG TABLET PO SCH (21:44)
[2020-08-26] MEDS: DONEPEZIL HCL 10 MG TABLET (FP) PO SCH (21:44)
[2020-08-26] MEDS: ATORVASTATIN CA 40 MG TABLET (FP) PO SCH (21:44)
[2020-08-27 07:19] LABS: BASO % 0.5 % (0-2.0); EOS % 1.4 % (0-4.5); HEMATOCRIT 28.3 % (32.4-45.2); HEMOGLOBIN 9.5 GM/dL (10.7-15.3); LYMPH % 32.6 % (8-40); MCH 29.7 pg (25.7-33.7); MCHC 33.5 g/dl (32.0-36.0); MEAN CELL VOLUME 88.8 fl (80-96); MEAN PLT VOLUME 8.1 fl (7.5-11.1); MONO % 13.1 % (3.8-10.2); NEUT % 52.4 % (42.8-82.8); PLATELET COUNT 275 K/MM3 (134-434); RBC 3.19 M/mm3 (3.60-5.2); RDW 14.3 % (11.6-15.6); WHITE BLOOD COUNT 2.9 K/mm3 (4.0-10.0)
[2020-08-27 07:54] LABS: CALCIUM 8.4 mg/dL (8.5-10.1)
[2020-08-27 07:55] LABS: BLOOD UREA NITROGEN 43.6 mg/dL (7-18)
[2020-08-27 07:56] LABS: MAGNESIUM 2.1 mg/dL (1.8-2.4)
[2020-08-27 07:59] LABS: BILIRUBIN,TOTAL 0.3 mg/dL (0.2-1); TOT PROT 4.8 g/dl (6.4-8.2)
[2020-08-27] MEDS ORDERED: cefTRIAXone SODIUM 1 GM VIAL ONE (10:32)
[2020-08-27] MEDS ORDERED: DEXTROSE 5%-WATER - 50 ML IVPB ONE (10:32)
[2020-08-27] MEDS: APIXABAN 2.5 MG TABLET PO SCH ×2 (10:35→21:31)
[2020-08-27] MEDS: CEFTRIAXONE 1 GM in DEXTROSE 5%-WATER - 50 ML IVPB SCH (10:35)
[2020-08-27] MEDS: CLOPIDOGREL BISULFATE 75 MG TABLET (FP) PO SCH (10:35)
[2020-08-27] MEDS: MULTIVITAMINS THER W-MINERALS COMBO TABLET (FP) PO SCH (10:35)
[2020-08-27] MEDS: ATENOLOL 50 MG TABLET (FP) PO SCH (10:35)
[2020-08-27] MEDS: SPIRONOLACTONE 25 MG TABLET PO SCH ×2 (10:36→21:32)
[2020-08-27] MEDS: ACETAMINOPHEN 500 MG TABLET (FP) PO SCH ×2 (10:36→21:32)
[2020-08-27] MEDS: AMINO ACIDS 4.25%/D5W 1,000 ML IV SCH (18:47)
[2020-08-27] MEDS: DONEPEZIL HCL 10 MG TABLET (FP) PO SCH (21:32)
[2020-08-27] MEDS: ATORVASTATIN CA 40 MG TABLET (FP) PO SCH (21:32)
[2020-08-27] MEDS: ONDANSETRON 4 MG/2 ML VIAL IVPUSH PRN (21:48)
[2020-08-28 06:59] LABS: BASO % 0.7 % (0-2.0); HEMATOCRIT 28.9 % (32.4-45.2); HEMOGLOBIN 9.5 GM/dL (10.7-15.3); LYMPH % 26.4 % (8-40); MCH 29.4 pg (25.7-33.7); MCHC 32.8 g/dl (32.0-36.0); MEAN CELL VOLUME 89.8 fl (80-96); MEAN PLT VOLUME 7.9 fl (7.5-11.1); MONO % 12.7 % (3.8-10.2); NEUT % 57.2 % (42.8-82.8); PLATELET COUNT 275 K/MM3 (134-434); RBC 3.22 M/mm3 (3.60-5.2); RDW 14.3 % (11.6-15.6); WHITE BLOOD COUNT 3.2 K/mm3 (4.0-10.0)
[2020-08-28 07:31] LABS: CALCIUM 8.6 mg/dL (8.5-10.1)
[2020-08-28 07:32] LABS: ALBUMIN 2.2 g/dl (3.4-5.0); BLOOD UREA NITROGEN 46.7 mg/dL (7-18)
[2020-08-28 07:35] LABS: CREATININE 1.9 mg/dL (0.55-1.3)
[2020-08-28 07:36] LABS: BILIRUBIN,TOTAL 0.3 mg/dL (0.2-1); TOT PROT 4.7 g/dl (6.4-8.2)
[2020-08-28 08:10] LABS: CARCINOEMBRYONIC ANTIGEN 1.2 ng/mL (0.0-4.7)
[2020-08-28] MEDS ORDERED: DEXTROSE 5%-WATER - 50 ML IVPB ONE (10:07)
[2020-08-28] MEDS ORDERED: cefTRIAXone SODIUM 1 GM VIAL ONE (10:07)
[2020-08-28] MEDS: CEFTRIAXONE 1 GM in DEXTROSE 5%-WATER - 50 ML IVPB SCH (10:11)
[2020-08-28] MEDS: MULTIVITAMINS THER W-MINERALS COMBO TABLET (FP) PO SCH (10:12)
[2020-08-28] MEDS: CLOPIDOGREL BISULFATE 75 MG TABLET (FP) PO SCH (10:12)
[2020-08-28] MEDS: ACETAMINOPHEN 500 MG TABLET (FP) PO SCH (10:12)
[2020-08-28] MEDS: ATENOLOL 50 MG TABLET (FP) PO SCH (10:12)
[2020-08-28] MEDS: APIXABAN 2.5 MG TABLET PO SCH (10:12)
[2020-08-28] MEDS: SPIRONOLACTONE 25 MG TABLET PO SCH (10:12)
[2020-08-28] MEDS: ONDANSETRON 4 MG/2 ML VIAL IVPUSH PRN (10:51)
[2020-08-28 14:51] VITALS: BP 131/55; PULSE 72; TEMP 99.8
== END 2020-08-28 16:43 | disposition short-term general hospital (02) | DRG 754 ==
LOC: JER 09:49 → JERBED 14:55 → J4S 08-23 14:50
PROVIDERS: ADMIT Internal Medicine; ATTEND Nurse Practitioner Acute Care
PROC: 0W9G3ZX Drainage of Peritoneal Cavity, Percutaneous Approach, Diagnostic (ICD-10-PCS; principal; 2020-08-23)
DX: C56.9 Malignant neoplasm of unspecified ovary (principal); E43 Unspecified severe protein-calorie malnutrition; R18.8 Other ascites; I48.92 Unspecified atrial flutter; I13.0 Hypertensive heart and chronic kidney disease with heart failure and stage 1 through stage 4 chronic kidney disease, or unspecified chronic kidney disease; R64 Cachexia; G45.9 Transient cerebral ischemic attack, unspecified; N17.9 Acute kidney failure, unspecified; N39.0 Urinary tract infection, site not specified; I25.10 Atherosclerotic heart disease of native coronary artery without angina pectoris; I48.91 Unspecified atrial fibrillation; N18.30 Chronic kidney disease, stage 3 unspecified; I50.9 Heart failure, unspecified; E78.5 Hyperlipidemia, unspecified; I73.9 Peripheral vascular disease, unspecified; R47.81 Slurred speech; I34.0 Nonrheumatic mitral (valve) insufficiency; R13.10 Dysphagia, unspecified; K57.90 Diverticulosis of intestine, part unspecified, without perforation or abscess without bleeding; K76.0 Fatty (change of) liver, not elsewhere classified; Z68.21 Body mass index [BMI] 21.0-21.9, adult; I77.1 Stricture of artery; F03.90 Unspecified dementia, unspecified severity, without behavioral disturbance, psychotic disturbance, mood disturbance, and anxiety; R63.0 Anorexia; B96.20 Unspecified Escherichia coli [E. coli] as the cause of diseases classified elsewhere; Z86.718 Personal history of other venous thrombosis and embolism
CPT/HCPCS: 36415; 70450-TC; 70551-TC; 71045-TC-FY; 71250-TC; 74174-TC; 74230-TC-FY; 76856-TC; 80048; 80053; 80061; 81003; 82042; 82105; 82150; 82378; 82550; 82607; 82728; 82945; 82962; 83036; 83516; 83540; 83550; 83605; 83615; 83690; 83721; 83735; 83986; 84100; 84157; 84443; 84484; 85025; 85027; 85610; 85730; 86301; 86304; 86704; 86706; 86707; 86708; 86709; 86803; 86850; 86900; 86901; 87040; 87070; 87075; 87086; 87186; 87205; 87340; 88108; 88305-TC; 92611-GN; 93005; 93010; 93880-TC; 97116-GP; 97161-GP; 99285-25; C9803; J0131; Q9967; U0003; U0005